=== PATIENT | male | born 1955 | race Caucasian/White ===

== ENCOUNTER 2017-08-08 16:39 | Inpatient (IN) | payer OTHER ==
[~2017-08-08] VITALS: Ht 195.6 cm; Wt 96.7 kg
[2017-08-08 18:11] LABS: HEMATOCRIT 33.5 % (38.0-50.0); HEMOGLOBIN 11.5 G/DL (12.5-16.6); MCHC 34.3 G/DL (30.0-36.0); MCV 84.4 FL (86-99); PLATELET COUNT 264 K/uL (156-360); RBC DIS.WIDTH-CV 13.6 % (11.8-14.6); RBC DIS.WIDTH-SD 42.3 % (39-53); RED BLOOD COUNT 3.97 M/uL (4.00-5.50)
[2017-08-08 18:23] LABS: ALBUMIN 3.8 g/dL (3.2-4.8)
[2017-08-08 18:24] LABS: CHLORIDE 98 mEq/L (99-109); POTASSIUM 4.4 mEq/L (3.7-5.4); SODIUM 134 mEq/L (136-147)
[2017-08-08 18:26] LABS: TOTAL PROTEIN 7.6 g/dL (6.4-8.3)
[2017-08-08 18:28] LABS: TOTAL BILIRUBIN 0.6 mg/dL (0.0-1.0)
[2017-08-08 18:30] LABS: ALKALINE PHOSPHATASE 68 IU/L (3-129); CREATININE 6.3 mg/dL (0.6-1.3)
[2017-08-08 18:31] LABS: AST (GOT) 11 IU/L (2-34)
[2017-08-08 18:33] LABS: ALT (GPT) 6 IU/L (3-49); LIPASE 9 U/L (1.0-51.0)
[2017-08-08 18:38] LABS: GFR ESTIMATE (CALCULATED) 10 mL/min/ (58.99-99999)
[2017-08-08 18:39] LABS: TROP-I INTERPRETATION NEGATIVE; TROPONIN-I 0.12 ng/mL (0.0-0.30)
[2017-08-08 18:49] LABS: GLUCOSE 483 mg/dL (70-99)
[2017-08-08 18:50] LABS: UREA NITROGEN (BUN) 119 mg/dL (9-23)
[2017-08-08] MEDS ORDERED: COREG12.5 M1 PO (19:45)
[2017-08-08] MEDS ORDERED: GABAPENTIN100 MG PO (19:45)
[2017-08-08] MEDS ORDERED: APRESOLINE25 MG PO (19:45)
[2017-08-08] MEDS ORDERED: ADULT ASPIRIN R81 MG PO (19:46)
[2017-08-08] MEDS ORDERED: AMLODIPINE BESYL5 MG PO (19:46)
[2017-08-08] MEDS ORDERED: KLOR-CON M1010 MEQ PO (19:46)
[2017-08-08] MEDS ORDERED: PRILOSEC20 MG PO (19:46)
[2017-08-08] MEDS ORDERED: LANTUS 10100 UNITS/ SC (19:47)
[2017-08-08 22:21] LABS: APPEARANCE CLOUDY ((CLEAR)); BILIRUBIN NEGATIVE; BLOOD MODERATE; COLOR YELLOW ((YELLOW)); GLUCOSE (STRIP) >=500; KETONES 5; LEUKOCYTES NEGATIVE; NITRITE NEGATIVE; PROTEIN (STRIP) >=500; SPECIFIC GRAVITY 1.017 (1.000-1.030); UROBILINOGEN 0.2 MG/DL (0.2-1.0)
[2017-08-08 22:42] LABS: AMORPHOUS URATES CRYSTALS 4+; BACTERIA NONE SEEN /HPF; EPITHELIAL CELLS NONE SEEN /HPF; MUCUS NONE SEEN /LPF; RED BLOOD CELLS 0-5 /HPF (0-5); UCUL ADDED? NO; WHITE BLOOD CELLS NONE SEEN /HPF (0-5)
[2017-08-08 23:37] LABS: URIC ACID 11.5 mg/dL (3.1-9.2)
[2017-08-09 00:53] LABS: TROP-I INTERPRETATION NEGATIVE; TROPONIN-I 0.11 ng/mL (0.0-0.30)
[2017-08-09 07:03] LABS: HEMATOCRIT 31.1 % (38.0-50.0); HEMOGLOBIN 10.3 G/DL (12.5-16.6); MCH 28.1 PG (29.0-34.0); MCHC 33.1 G/DL (30.0-36.0); PLATELET COUNT 232 K/uL (156-360); RBC DIS.WIDTH-CV 13.9 % (11.8-14.6); RED BLOOD COUNT 3.66 M/uL (4.00-5.50)
[2017-08-09 07:38] LABS: TROP-I INTERPRETATION NEGATIVE
[2017-08-09 07:55] LABS: ALBUMIN 2.9 G/DL (3.2-4.8); CHLORIDE 104 MEQ/L (99-109); GFR ESTIMATE (CALCULATED) 13 mL/min/ (58.99-99999); GLUCOSE 280 mg/dL (70-99); PHOSPHORUS 4.1 mg/dL (2.5-4.9); SODIUM 136 MEQ/L (136-147); UREA NITROGEN (BUN) 95 mg/dL (9-23)
[2017-08-09 07:56] LABS: CREATININE 4.8 MG/DL (0.6-1.3)
[2017-08-09 08:07] LABS: POTASSIUM 3.9 MEQ/L (3.7-5.4)
[2017-08-09 08:08] LABS: THYROTROPIN (TSH) 0.69 MIU/L (0.4-5.5)
[2017-08-09 08:21] LABS: UR CREATININE CONCENTRATION 77.7 MG/DL
[2017-08-09 13:12] VITALS: BP 130/79
[2017-08-09 19:25] VITALS: BP 128/74
[2017-08-10] VITALS (7 sets, daily range): BP systolic 108–145; BP diastolic 65–94
[2017-08-10 06:34] LABS: MAGNESIUM 1.7 mg/dl (1.3-2.7)
[2017-08-10 07:07] LABS: HEMATOCRIT 28.5 % (38.0-50.0); HEMOGLOBIN 9.2 G/DL (12.5-16.6); MCH 27.9 PG (29.0-34.0); MCHC 32.3 G/DL (30.0-36.0); MCV 86.4 FL (86-99); PLATELET COUNT 215 K/uL (156-360); RBC DIS.WIDTH-SD 43.4 % (39-53); WHITE BLOOD COUNT 7.1 K/uL (4.1-10.2)
[2017-08-10 08:10] LABS: CHLORIDE 107 MEQ/L (99-109); CREATININE 4.3 MG/DL (0.6-1.3); GFR ESTIMATE (CALCULATED) 15 mL/min/ (58.99-99999); GLUCOSE 162 mg/dL (70-99); SODIUM 140 MEQ/L (136-147); UREA NITROGEN (BUN) 82 mg/dL (9-23)
[2017-08-10 09:26] LABS: IRON 36 MCG/DL (35-150); TRANSFERRIN (TIBC) 113.3 mg/dL (215-380); TRANSFERRIN SATUR. 32 % (20-55)
[2017-08-10 09:48] LABS: FOLIC ACID (FOLATE) 8.3 NG/ML (5.0-22.0)
[2017-08-11 03:54] VITALS: BP 146/82
[2017-08-11 05:56] LABS: HEMOGLOBIN 8.3 G/DL (12.5-16.6); MCH 28.3 PG (29.0-34.0); MCHC 31.9 G/DL (30.0-36.0); MCV 88.7 FL (86-99); PLATELET COUNT 187 K/uL (156-360); RBC DIS.WIDTH-CV 14.4 % (11.8-14.6); RBC DIS.WIDTH-SD 46.4 % (39-53); RED BLOOD COUNT 2.93 M/uL (4.00-5.50); WHITE BLOOD COUNT 6.3 K/uL (4.1-10.2)
[2017-08-11 06:29] LABS: CHLORIDE 106 MEQ/L (99-109); CREATININE 4.3 MG/DL (0.6-1.3); GFR ESTIMATE (CALCULATED) 15 mL/min/ (58.99-99999); GLUCOSE 210 mg/dL (70-99); POTASSIUM 3.9 MEQ/L (3.7-5.4); SODIUM 136 MEQ/L (136-147); UREA NITROGEN (BUN) 69 mg/dL (9-23)
[2017-08-11 07:14] VITALS: BP 124/86
[2017-08-11 07:38] LABS: Estimated Average Glucose 260 mg/dL (70-123); HEMOGLOBIN A1c (GLYCOHEMOGLOB) 10.7 % HGB (Below 5.7)
[2017-08-11 11:17] VITALS: BP 145/88
[2017-08-11 15:24] VITALS: BP 130/81
[2017-08-11 19:10] VITALS: BP 140/86
[2017-08-11 19:21] LABS: URINE TOTAL PROTEIN 223 MG/DL (0-10)
[2017-08-12 00:25] VITALS: BP 131/87
[2017-08-12 03:59] VITALS: BP 137/83
[2017-08-12 06:31] LABS: C4 COMPLEMENT 36 MG/DL (10-40)
[2017-08-12 07:10] LABS: HEMATOCRIT 25.2 % (38.0-50.0); HEMOGLOBIN 7.9 G/DL (12.5-16.6); MCH 28.1 PG (29.0-34.0); MCHC 31.3 G/DL (30.0-36.0); MCV 89.7 FL (86-99); PLATELET COUNT 224 K/uL (156-360); RBC DIS.WIDTH-CV 14.5 % (11.8-14.6); RBC DIS.WIDTH-SD 46.8 % (39-53); RED BLOOD COUNT 2.81 M/uL (4.00-5.50); WHITE BLOOD COUNT 7.1 K/uL (4.1-10.2)
[2017-08-12 07:12] VITALS: BP 129/80
[2017-08-12 07:47] LABS: CHLORIDE 105 MEQ/L (99-109); CREATININE 4.3 MG/DL (0.6-1.3); GFR ESTIMATE (CALCULATED) 15 mL/min/ (58.99-99999); GLUCOSE 291 mg/dL (70-99); MAGNESIUM 1.4 mg/dl (1.3-2.7); POTASSIUM 4.2 MEQ/L (3.7-5.4); SODIUM 135 MEQ/L (136-147); UREA NITROGEN (BUN) 62 mg/dL (9-23)
[2017-08-12 11:16] VITALS: BP 119/83
[2017-08-12 11:35] LABS: BASOPHIL (%) 0.1 % (0-1); EOSINOPHIL (%) 7.1 % (0-5); EOSINOPHIL COUNT 0.5 K/uL (0-0.3); HEMATOCRIT 24.9 % (38.0-50.0); IMMATURE GRANULOCYTE (%) 1.1 % (0.0-0.7); LYMPHOCYTE (%) 24.5 % (15-42); LYMPHOCYTE COUNT 1.8 K/uL (1.0-2.8); MCH 28.9 PG (29.0-34.0); MCHC 32.1 G/DL (30.0-36.0); MCV 89.9 FL (86-99); MONOCYTE (%) 11.9 % (3-12); MONOCYTE COUNT 0.9 K/uL (0-0.8); NEUTROPHIL (%) 55.3 % (45-76); NEUTROPHIL COUNT 3.9 K/uL (1.8-6.4); PLATELET COUNT 196 K/uL (156-360); RBC DIS.WIDTH-CV 14.7 % (11.8-14.6); RBC DIS.WIDTH-SD 48.9 % (39-53); RED BLOOD COUNT 2.77 M/uL (4.00-5.50); WHITE BLOOD COUNT 7.1 K/uL (4.1-10.2)
[2017-08-12 11:57] LABS: HEPATITIS B SURFACE ANTIGEN Nonreactive; HEPATITIS C ANTIBODY Nonreactive
[2017-08-12 11:58] LABS: HEPATITIS B SURFACE ANTIBODY Nonreactive
[2017-08-12 15:33] VITALS: BP 112/72
[2017-08-12] MEDS ORDERED: ELIQUIS5 MG PO (15:54)
[2017-08-12 21:40] LABS: INTACT PARATHYROID HORMONE 193 pg/mL (10-69)
[2017-08-14 19:48] LABS: MYELOPEROXIDASE ANTIBODY (MPO) <1.0 AI (<1.0); PROTEINASE-3 ANTIBODY+ <1.0 AI (<1.0)
== END 2017-08-12 17:56 | DRG 638 ==
LOC: EME 16:39 → 4EAST 21:56 → EDOF 21:56 → ENRESERV 22:05 → 4EAST 08-09 13:10 → ENPENDDIS 08-12 → 4EAST 08-12 17:56
PROVIDERS: Hospitalist; Internal Medicine; Physician Assistant; Student in an Organized Health Care Education/Training Program
DX: E11.10 Type 2 diabetes mellitus with ketoacidosis without coma (principal); I48.0 Paroxysmal atrial fibrillation; N39.0 Urinary tract infection, site not specified; N17.9 Acute kidney failure, unspecified; N18.4 Chronic kidney disease, stage 4 (severe); I12.9 Hypertensive chronic kidney disease with stage 1 through stage 4 chronic kidney disease, or unspecified chronic kidney disease; J01.00 Acute maxillary sinusitis, unspecified; E86.1 Hypovolemia; N28.1 Cyst of kidney, acquired; E11.22 Type 2 diabetes mellitus with diabetic chronic kidney disease; R55 Syncope and collapse; D63.1 Anemia in chronic kidney disease; R07.89 Other chest pain; K59.00 Constipation, unspecified; E78.5 Hyperlipidemia, unspecified; E86.0 Dehydration; I42.9 Cardiomyopathy, unspecified; E11.42 Type 2 diabetes mellitus with diabetic polyneuropathy; E11.21 Type 2 diabetes mellitus with diabetic nephropathy; F17.210 Nicotine dependence, cigarettes, uncomplicated; K21.0 Gastro-esophageal reflux disease with esophagitis; Z79.4 Long term (current) use of insulin; Z79.01 Long term (current) use of anticoagulants; E55.9 Vitamin D deficiency, unspecified; Z82.49 Family history of ischemic heart disease and other diseases of the circulatory system; Z83.3 Family history of diabetes mellitus
CPT/HCPCS: 70450; 71046; 74176; 76770; 80048; 80048 91; 80053; 80069; 81003; 82306; 82436; 82550 91; 82570; 82607; 82746; 82948; 83036; 83540; 83605; 83690; 83735; 83970; 84133; 84156; 84300; 84443; 84466; 84484; 84550; 85025; 85027; 86021 90; 86160; 86334; 86335; 86430; 86706; 86803; 87040; 87340; 89190; 93005; 93306; 99281; 99285; G0103; J0696; J0881; J1650; J1815; J2405; J7030; S0028

== ENCOUNTER 2017-10-16 13:20 | Inpatient (IN) | payer OTHER ==
[~2017-10-16] VITALS: Ht 195.6 cm; Wt 97.5 kg
[~2017-10-16 13:20] MED LIST: ADULT ASPIRIN R81 MG PO; AMLODIPINE BESYL5 MG PO; APRESOLINE25 MG PO; COREG12.5 M1 PO; DULCOLAX10 MG PR; ELIQUIS5 MG PO; GABAPENTIN100 MG PO; KLOR-CON M1010 MEQ PO; LANTUS 10100 UNITS/ SC; MILK OF MAGN PO; NOVOLOG PE100 UNITS/ SC; PRILOSEC20 MG PO
[2017-10-16 14:07] LABS: HEMATOCRIT 25.3 % (38.0-50.0); MCHC 31.6 G/DL (30.0-36.0); MCV 88.5 FL (86-99); PLATELET COUNT 252 K/uL (156-360); RBC DIS.WIDTH-SD 48.4 % (39-53); RED BLOOD COUNT 2.86 M/uL (4.00-5.50); WHITE BLOOD COUNT 6.9 K/uL (4.1-10.2)
[2017-10-16 14:15] LABS: CHLORIDE 106 mEq/L (99-109); POTASSIUM 3.9 mEq/L (3.7-5.4); SODIUM 134 mEq/L (136-147)
[2017-10-16 14:17] LABS: GLUCOSE 136 mg/dL (70-99)
[2017-10-16 14:21] LABS: CREATININE 5.6 mg/dL (0.6-1.3); GFR ESTIMATE (CALCULATED) 11 mL/min/ (58.99-99999)
[2017-10-16 14:22] LABS: UREA NITROGEN (BUN) 56 mg/dL (9-23)
[2017-10-16 17:34] LABS: CHLORIDE 106 mEq/L (99-109); POTASSIUM 3.9 mEq/L (3.7-5.4); SODIUM 135 mEq/L (136-147)
[2017-10-16 17:36] LABS: GLUCOSE 141 mg/dL (70-99)
[2017-10-16 17:40] LABS: CREATININE 5.4 mg/dL (0.6-1.3); GFR ESTIMATE (CALCULATED) 11 mL/min/ (58.99-99999)
[2017-10-16 17:41] LABS: UREA NITROGEN (BUN) 55 mg/dL (9-23)
[2017-10-16 21:55] LABS: TROP-I INTERPRETATION NEGATIVE; TROPONIN-I < 0.01 ng/mL (0.0-0.30)
[2017-10-16 23:08] VITALS: BP 153/77
[2017-10-17 01:15] VITALS: BP 140/70
[2017-10-17 02:08] LABS: HEMATOCRIT 26.2 % (38.0-50.0); HEMOGLOBIN 8.4 G/DL (12.5-16.6); MCH 27.9 PG (29.0-34.0); MCHC 32.1 G/DL (30.0-36.0); PLATELET COUNT 294 K/uL (156-360); RBC DIS.WIDTH-CV 14.9 % (11.8-14.6); RBC DIS.WIDTH-SD 47.7 % (39-53); RED BLOOD COUNT 3.01 M/uL (4.00-5.50)
[2017-10-17 02:20] LABS: CHLORIDE 108 mEq/L (99-109); POTASSIUM 4.3 mEq/L (3.7-5.4); SODIUM 136 mEq/L (136-147)
[2017-10-17 02:22] LABS: GLUCOSE 181 mg/dL (70-99)
[2017-10-17 02:26] LABS: CREATININE 5.1 mg/dL (0.6-1.3); GFR ESTIMATE (CALCULATED) 12 mL/min/ (58.99-99999)
[2017-10-17 02:27] LABS: UREA NITROGEN (BUN) 53 mg/dL (9-23)
[2017-10-17 02:28] LABS: TROP-I INTERPRETATION NEGATIVE; TROPONIN-I < 0.01 ng/mL (0.0-0.30)
[2017-10-17 05:00] VITALS: BP 131/79
[2017-10-17 08:03] VITALS: BP 146/80
[2017-10-17 09:23] LABS: IRON 72 MCG/DL (35-150); TRANSFERRIN (TIBC) 137.7 mg/dL (215-380); TRANSFERRIN SATUR. 52 % (20-55)
[2017-10-17 09:39] LABS: FERRITIN 174 NG/ML (22-322)
[2017-10-17 11:55] VITALS: BP 155/85
[2017-10-17 15:11] VITALS: BP 111/83
[2017-10-17 20:08] VITALS: BP 140/77
[2017-10-18] VITALS (11 sets, daily range): BP systolic 138–165; BP diastolic 70–91
[2017-10-18 05:42] LABS: BASOPHIL (%) 0.1 % (0-1); EOSINOPHIL (%) 0.3 % (0-5); HEMATOCRIT 21.5 % (38.0-50.0); HEMOGLOBIN 6.8 G/DL (12.5-16.6); IMMATURE GRANULOCYTE (%) 0.3 % (0.0-0.7); LYMPHOCYTE (%) 19.9 % (15-42); LYMPHOCYTE COUNT 1.5 K/uL (1.0-2.8); MCH 27.8 PG (29.0-34.0); MCHC 31.6 G/DL (30.0-36.0); MCV 87.8 FL (86-99); MONOCYTE (%) 10.9 % (3-12); MONOCYTE COUNT 0.8 K/uL (0-0.8); NEUTROPHIL (%) 68.5 % (45-76); NEUTROPHIL COUNT 5.2 K/uL (1.8-6.4); PLATELET COUNT 229 K/uL (156-360); RBC DIS.WIDTH-CV 15.2 % (11.8-14.6); RBC DIS.WIDTH-SD 48.3 % (39-53); RED BLOOD COUNT 2.45 M/uL (4.00-5.50); WHITE BLOOD COUNT 7.6 K/uL (4.1-10.2)
[2017-10-18 06:00] LABS: ALBUMIN 2.9 G/DL (3.2-4.8); CHLORIDE 110 MEQ/L (99-109); CREATININE 4.9 MG/DL (0.6-1.3); GFR ESTIMATE (CALCULATED) 13 mL/min/ (58.99-99999); GLUCOSE 66 mg/dL (70-99); PHOSPHORUS 3.6 mg/dL (2.5-4.9); POTASSIUM 4.4 MEQ/L (3.7-5.4); SODIUM 139 MEQ/L (136-147); UREA NITROGEN (BUN) 62 mg/dL (9-23)
[2017-10-18 08:15] LABS: INTACT PARATHYROID HORMONE 131 pg/mL (10-69)
[2017-10-18 08:28] LABS: HEMATOCRIT 22.5 % (38.0-50.0); MCV 87.9 FL (86-99)
[2017-10-18 17:06] LABS: HEMATOCRIT 25.6 % (38.0-50.0); HEMOGLOBIN 8.1 G/DL (12.5-16.6)
[2017-10-19 04:56] LABS: ALBUMIN 3.1 g/dL (3.2-4.8)
[2017-10-19 04:57] LABS: CHLORIDE 110 mEq/L (99-109); POTASSIUM 4.9 mEq/L (3.7-5.4); SODIUM 138 mEq/L (136-147)
[2017-10-19 05:02] LABS: CREATININE 5.3 mg/dL (0.6-1.3); GFR ESTIMATE (CALCULATED) 12 mL/min/ (58.99-99999)
[2017-10-19 05:03] LABS: UREA NITROGEN (BUN) 70 mg/dL (9-23)
[2017-10-19 05:06] LABS: GLUCOSE 171 mg/dL (70-99)
[2017-10-19 05:46] VITALS: BP 155/81
[2017-10-19 06:45] LABS: HEMOGLOBIN A1c (GLYCOHEMOGLOB) 9.5 % (Below 5.7)
[2017-10-19 08:03] LABS: HEMATOCRIT 24.3 % (38.0-50.0); HEMOGLOBIN 7.7 G/DL (12.5-16.6); MCH 28.1 PG (29.0-34.0); MCHC 31.7 G/DL (30.0-36.0); MCV 88.7 FL (86-99); PLATELET COUNT 230 K/uL (156-360); RBC DIS.WIDTH-CV 15.6 % (11.8-14.6); RBC DIS.WIDTH-SD 50.4 % (39-53); RED BLOOD COUNT 2.74 M/uL (4.00-5.50); WHITE BLOOD COUNT 8.4 K/uL (4.1-10.2)
[2017-10-19 08:30] VITALS: BP 162/86
[2017-10-19 11:30] VITALS: BP 162/76
[2017-10-19 14:10] VITALS: BP 151/77
[2017-10-19 16:17] LABS: HEMATOCRIT 24.6 % (38.0-50.0); HEMOGLOBIN 7.8 G/DL (12.5-16.6); MCV 87.5 FL (86-99)
[2017-10-19 20:00] VITALS: BP 146/78
[2017-10-19 23:47] VITALS: BP 137/74
[2017-10-20] VITALS (8 sets, daily range): BP systolic 138–185; BP diastolic 77–91
[2017-10-20 06:03] LABS: BASOPHIL (%) 0.4 % (0-1); EOSINOPHIL (%) 7.8 % (0-5); EOSINOPHIL COUNT 0.6 K/uL (0-0.3); HEMATOCRIT 23.8 % (38.0-50.0); HEMOGLOBIN 7.6 G/DL (12.5-16.6); IMMATURE GRANULOCYTE (%) 0.5 % (0.0-0.7); LYMPHOCYTE (%) 20.8 % (15-42); LYMPHOCYTE COUNT 1.5 K/uL (1.0-2.8); MCH 28.1 PG (29.0-34.0); MCHC 31.9 G/DL (30.0-36.0); MCV 88.1 FL (86-99); MONOCYTE (%) 11.4 % (3-12); MONOCYTE COUNT 0.8 K/uL (0-0.8); NEUTROPHIL (%) 59.1 % (45-76); NEUTROPHIL COUNT 4.3 K/uL (1.8-6.4); PLATELET COUNT 210 K/uL (156-360); RBC DIS.WIDTH-CV 15.6 % (11.8-14.6); RBC DIS.WIDTH-SD 48.9 % (39-53); WHITE BLOOD COUNT 7.3 K/uL (4.1-10.2)
[2017-10-20 06:36] LABS: ALBUMIN 2.9 G/DL (3.2-4.8); CHLORIDE 111 MEQ/L (99-109); CREATININE 4.8 MG/DL (0.6-1.3); GFR ESTIMATE (CALCULATED) 13 mL/min/ (58.99-99999); PHOSPHORUS 4.6 mg/dL (2.5-4.9); POTASSIUM 4.6 MEQ/L (3.7-5.4); SODIUM 142 MEQ/L (136-147); UREA NITROGEN (BUN) 66 mg/dL (9-23)
[2017-10-20 06:44] LABS: GLUCOSE 60 mg/dL (70-99)
[2017-10-20 06:51] LABS: STOOL OCCULT BLD 1ST SPECIMEN NEGATIVE
[2017-10-20 16:25] LABS: STOOL OCCULT BLD 1ST SPECIMEN NEGATIVE
[2017-10-21 00:05] VITALS: BP 155/78
[2017-10-21 03:58] VITALS: BP 140/78
[2017-10-21 08:05] VITALS: BP 144/78
[2017-10-21 08:15] LABS: BASOPHIL (%) 0.3 % (0-1); EOSINOPHIL (%) 11.6 % (0-5); EOSINOPHIL COUNT 0.9 K/uL (0-0.3); HEMATOCRIT 26.3 % (38.0-50.0); HEMOGLOBIN 8.3 G/DL (12.5-16.6); IMMATURE GRANULOCYTE (%) 0.3 % (0.0-0.7); LYMPHOCYTE (%) 19.8 % (15-42); LYMPHOCYTE COUNT 1.5 K/uL (1.0-2.8); MCH 27.7 PG (29.0-34.0); MCHC 31.6 G/DL (30.0-36.0); MCV 87.7 FL (86-99); MONOCYTE (%) 10.4 % (3-12); MONOCYTE COUNT 0.8 K/uL (0-0.8); NEUTROPHIL (%) 57.6 % (45-76); NEUTROPHIL COUNT 4.3 K/uL (1.8-6.4); PLATELET COUNT 217 K/uL (156-360); RBC DIS.WIDTH-CV 15.9 % (11.8-14.6); RBC DIS.WIDTH-SD 50.5 % (39-53); WHITE BLOOD COUNT 7.4 K/uL (4.1-10.2)
[2017-10-21 08:42] LABS: CHLORIDE 109 MEQ/L (99-109); GFR ESTIMATE (CALCULATED) 12 mL/min/ (58.99-99999); POTASSIUM 4.6 MEQ/L (3.7-5.4); SODIUM 141 MEQ/L (136-147); UREA NITROGEN (BUN) 60 mg/dL (9-23)
[2017-10-21 08:50] LABS: GLUCOSE 147 mg/dL (70-99)
[2017-10-21 11:40] VITALS: BP 142/78
[2017-10-21 16:32] LABS: GLUCOSE 38 mg/dL (70-99)
[2017-10-21 20:20] VITALS: BP 160/92
[2017-10-21 23:20] VITALS: BP 129/82
[2017-10-22 04:28] VITALS: BP 166/83
[2017-10-22 07:01] LABS: HEMOGLOBIN 8.2 G/DL (12.5-16.6); MCH 27.7 PG (29.0-34.0); MCHC 31.5 G/DL (30.0-36.0); MCV 87.8 FL (86-99); PLATELET COUNT 232 K/uL (156-360); RBC DIS.WIDTH-CV 15.9 % (11.8-14.6); RBC DIS.WIDTH-SD 50.3 % (39-53); RED BLOOD COUNT 2.96 M/uL (4.00-5.50); WHITE BLOOD COUNT 8.1 K/uL (4.1-10.2)
[2017-10-22 07:25] LABS: CHLORIDE 108 MEQ/L (99-109); CREATININE 5.1 MG/DL (0.6-1.3); GFR ESTIMATE (CALCULATED) 12 mL/min/ (58.99-99999); POTASSIUM 4.8 MEQ/L (3.7-5.4); SODIUM 140 MEQ/L (136-147); UREA NITROGEN (BUN) 58 mg/dL (9-23)
[2017-10-22 07:30] LABS: GLUCOSE 134 mg/dL (70-99)
[2017-10-22 07:56] VITALS: BP 136/72
[2017-10-22 11:37] VITALS: BP 134/73
[2017-10-22 11:39] LABS: STOOL OCCULT BLD 1ST SPECIMEN NEGATIVE
[2017-10-22 16:37] VITALS: BP 154/75
[2017-10-22 19:55] VITALS: BP 177/95
[2017-10-22 23:53] VITALS: BP 168/86
[2017-10-23 04:02] VITALS: BP 160/79
[2017-10-23 07:06] LABS: HEMATOCRIT 25.9 % (38.0-50.0); HEMOGLOBIN 8.2 G/DL (12.5-16.6); MCH 28.2 PG (29.0-34.0); MCHC 31.7 G/DL (30.0-36.0); PLATELET COUNT 235 K/uL (156-360); RBC DIS.WIDTH-CV 15.9 % (11.8-14.6); RBC DIS.WIDTH-SD 52.2 % (39-53); RED BLOOD COUNT 2.91 M/uL (4.00-5.50); WHITE BLOOD COUNT 7.5 K/uL (4.1-10.2)
[2017-10-23 07:31] LABS: CHLORIDE 108 MEQ/L (99-109); CREATININE 5.2 MG/DL (0.6-1.3); GFR ESTIMATE (CALCULATED) 12 mL/min/ (58.99-99999); GLUCOSE 132 mg/dL (70-99); POTASSIUM 4.8 MEQ/L (3.7-5.4); SODIUM 142 MEQ/L (136-147); UREA NITROGEN (BUN) 57 mg/dL (9-23)
[2017-10-23 08:00] VITALS: BP 162/76
[2017-10-23 12:15] VITALS: BP 181/99
[2017-10-23 15:44] VITALS: BP 170/80
[2017-10-24 01:54] VITALS: BP 145/78
[2017-10-24 08:54] LABS: CHLORIDE 108 MEQ/L (99-109); CREATININE 5.1 MG/DL (0.6-1.3); GFR ESTIMATE (CALCULATED) 12 mL/min/ (58.99-99999); GLUCOSE 134 mg/dL (70-99); POTASSIUM 4.8 MEQ/L (3.7-5.4); SODIUM 141 MEQ/L (136-147); UREA NITROGEN (BUN) 55 mg/dL (9-23)
[2017-10-24 11:27] VITALS: BP 173/75
[2017-10-24 15:50] VITALS: BP 143/77
[2017-10-24 23:45] VITALS: BP 140/85
[2017-10-25 08:00] VITALS: BP 136/72
[2017-10-25 11:25] VITALS: BP 162/84
[2017-10-25 15:41] VITALS: BP 148/82
[2017-10-26 04:04] VITALS: BP 145/74
[2017-10-26 07:45] LABS: HEMATOCRIT 24.4 % (38.0-50.0); HEMOGLOBIN 7.7 G/DL (12.5-16.6); MCH 28.1 PG (29.0-34.0); MCHC 31.6 G/DL (30.0-36.0); MCV 89.1 FL (86-99); PLATELET COUNT 240 K/uL (156-360); RBC DIS.WIDTH-CV 15.7 % (11.8-14.6); RBC DIS.WIDTH-SD 50.9 % (39-53); RED BLOOD COUNT 2.74 M/uL (4.00-5.50); WHITE BLOOD COUNT 7.3 K/uL (4.1-10.2)
[2017-10-26 08:07] LABS: CHLORIDE 110 MEQ/L (99-109); CREATININE 5.3 MG/DL (0.6-1.3); GFR ESTIMATE (CALCULATED) 12 mL/min/ (58.99-99999); GLUCOSE 167 mg/dL (70-99); POTASSIUM 4.4 MEQ/L (3.7-5.4); SODIUM 143 MEQ/L (136-147); UREA NITROGEN (BUN) 55 mg/dL (9-23)
[2017-10-26 15:54] VITALS: BP 160/95
[2017-10-27 00:08] VITALS: BP 120/60
[2017-10-27 06:23] LABS: HEMATOCRIT 25.2 % (38.0-50.0); HEMOGLOBIN 7.9 G/DL (12.5-16.6); MCH 27.8 PG (29.0-34.0); MCHC 31.3 G/DL (30.0-36.0); MCV 88.7 FL (86-99); PLATELET COUNT 239 K/uL (156-360); RBC DIS.WIDTH-CV 15.1 % (11.8-14.6); RBC DIS.WIDTH-SD 48.4 % (39-53); RED BLOOD COUNT 2.84 M/uL (4.00-5.50); WHITE BLOOD COUNT 7.1 K/uL (4.1-10.2)
[2017-10-27 07:12] LABS: CHLORIDE 106 MEQ/L (99-109); CREATININE 5.4 MG/DL (0.6-1.3); GFR ESTIMATE (CALCULATED) 11 mL/min/ (58.99-99999); POTASSIUM 4.5 MEQ/L (3.7-5.4); SODIUM 139 MEQ/L (136-147); UREA NITROGEN (BUN) 61 mg/dL (9-23)
[2017-10-27 07:20] LABS: GLUCOSE 335 mg/dL (70-99)
[2017-10-27 10:21] VITALS: BP 130/74
[2017-10-28 00:28] VITALS: BP 151/77
[2017-10-28 07:09] LABS: CHLORIDE 103 MEQ/L (99-109); CREATININE 5.8 MG/DL (0.6-1.3); GFR ESTIMATE (CALCULATED) 11 mL/min/ (58.99-99999); GLUCOSE 254 mg/dL (70-99); PHOSPHORUS 5.7 mg/dL (2.5-4.9); POTASSIUM 4.3 MEQ/L (3.7-5.4); SODIUM 136 MEQ/L (136-147); UREA NITROGEN (BUN) 66 mg/dL (9-23)
[2017-10-28 07:47] VITALS: BP 142/68
[2017-10-28 21:29] VITALS: BP 167/88
[2017-10-28 23:57] VITALS: BP 148/70
[2017-10-29 06:00] LABS: HEMATOCRIT 27.3 % (38.0-50.0); HEMOGLOBIN 8.7 G/DL (12.5-16.6); MCH 28.1 PG (29.0-34.0); MCHC 31.9 G/DL (30.0-36.0); MCV 88.1 FL (86-99); PLATELET COUNT 276 K/uL (156-360); RBC DIS.WIDTH-CV 15.2 % (11.8-14.6); RBC DIS.WIDTH-SD 48.5 % (39-53); WHITE BLOOD COUNT 8.7 K/uL (4.1-10.2)
[2017-10-29 06:28] LABS: ALBUMIN 3.3 G/DL (3.2-4.8); CHLORIDE 102 MEQ/L (99-109); CREATININE 5.7 MG/DL (0.6-1.3); GFR ESTIMATE (CALCULATED) 11 mL/min/ (58.99-99999); GLUCOSE 318 mg/dL (70-99); POTASSIUM 4.2 MEQ/L (3.7-5.4); SODIUM 136 MEQ/L (136-147); UREA NITROGEN (BUN) 67 mg/dL (9-23)
[2017-10-29 07:55] VITALS: BP 140/70
[2017-10-29 13:24] LABS: C DIFF TOXIN POSITIVE (NEGATIVE)
[2017-10-29 16:34] VITALS: BP 169/93
[2017-10-30] VITALS: BP 156/83
[2017-10-30 07:28] VITALS: BP 164/78
[2017-10-30 08:50] LABS: HEMOGLOBIN 9.1 G/DL (12.5-16.6); MCH 27.4 PG (29.0-34.0); MCHC 31.4 G/DL (30.0-36.0); MCV 87.3 FL (86-99); PLATELET COUNT 319 K/uL (156-360); RBC DIS.WIDTH-CV 15.4 % (11.8-14.6); RBC DIS.WIDTH-SD 48.4 % (39-53); RED BLOOD COUNT 3.32 M/uL (4.00-5.50); WHITE BLOOD COUNT 11.1 K/uL (4.1-10.2)
[2017-10-30 09:12] LABS: ALBUMIN 3.5 G/DL (3.2-4.8); CHLORIDE 102 MEQ/L (99-109); CREATININE 5.5 MG/DL (0.6-1.3); GFR ESTIMATE (CALCULATED) 11 mL/min/ (58.99-99999); GLUCOSE 312 mg/dL (70-99); POTASSIUM 4.4 MEQ/L (3.7-5.4); SODIUM 136 MEQ/L (136-147); UREA NITROGEN (BUN) 69 mg/dL (9-23)
[2017-10-31 00:45] VITALS: BP 138/75
[2017-10-31 06:43] LABS: ALBUMIN 3.2 G/DL (3.2-4.8); CHLORIDE 102 MEQ/L (99-109); CREATININE 5.7 MG/DL (0.6-1.3); GFR ESTIMATE (CALCULATED) 11 mL/min/ (58.99-99999); GLUCOSE 282 mg/dL (70-99); PHOSPHORUS 5.3 mg/dL (2.5-4.9); POTASSIUM 4.4 MEQ/L (3.7-5.4); SODIUM 138 MEQ/L (136-147); UREA NITROGEN (BUN) 71 mg/dL (9-23)
[2017-10-31 07:50] VITALS: BP 173/83
[2017-10-31 16:03] VITALS: BP 144/73
[2017-10-31 19:00] VITALS: BP 148/58
[2017-11-01 06:39] LABS: ALBUMIN 3.2 G/DL (3.2-4.8); CHLORIDE 104 MEQ/L (99-109); CREATININE 5.7 MG/DL (0.6-1.3); GFR ESTIMATE (CALCULATED) 11 mL/min/ (58.99-99999); GLUCOSE 354 mg/dL (70-99); PHOSPHORUS 4.7 mg/dL (2.5-4.9); POTASSIUM 4.3 MEQ/L (3.7-5.4); SODIUM 138 MEQ/L (136-147); UREA NITROGEN (BUN) 78 mg/dL (9-23)
[2017-11-01 08:38] VITALS: BP 192/98
[2017-11-01 09:49] VITALS: BP 157/81
[2017-11-01 12:00] VITALS: BP 156/73
[2017-11-01 16:03] VITALS: BP 163/85
[2017-11-01 23:10] VITALS: BP 155/74
[2017-11-02 07:00] LABS: ALBUMIN 3.2 G/DL (3.2-4.8); CHLORIDE 102 MEQ/L (99-109); CREATININE 5.8 MG/DL (0.6-1.3); GFR ESTIMATE (CALCULATED) 11 mL/min/ (58.99-99999); GLUCOSE 282 mg/dL (70-99); PHOSPHORUS 4.6 mg/dL (2.5-4.9); POTASSIUM 4.3 MEQ/L (3.7-5.4); SODIUM 138 MEQ/L (136-147); UREA NITROGEN (BUN) 78 mg/dL (9-23)
[2017-11-02 09:08] VITALS: BP 150/74
[2017-11-02 16:35] VITALS: BP 151/76
[2017-11-02 23:15] VITALS: BP 166/79
[2017-11-03 09:15] VITALS: BP 150/80
[2017-11-03] MEDS ORDERED: NABI650T PO (13:33)
[2017-11-03] MEDS ORDERED: PREDNISONE10 MG PO (13:33)
[2017-11-03] MEDS ORDERED: VENTOLIN HFA18 GM IH (13:33)
[2017-11-03] MEDS ORDERED: FLORASTOR250 MG PO (13:33)
[2017-11-03] MEDS ORDERED: CARVEDILOL25 MG PO (13:33)
[2017-11-03] MEDS ORDERED: VANCOCIN HCL125 MG PO (13:33)
[2017-11-03] MEDS ORDERED: ERGOCALCIF50000 UNIT PO (13:33)
[2017-11-03] MEDS ORDERED: STIOLTO RESPIMAT4 GM IH (13:33)
[2017-11-03] MEDS ORDERED: APRESOLINE50 MG PO (13:33)
== END 2017-11-03 16:26 | disposition home health service (06) | DRG 637 ==
LOC: EME 13:20 → EDOF 19:41 → 4EAST 19:41 → ENRESERV 19:57 → CANRESERV 19:57 → ENRESERV 20:46 → 4EAST 22:13 → ENRESERV 10-20 07:45 → 2EAST 10-20 12:14 → ENPENDDIS 11-03 → 2EAST 11-03 16:26
PROVIDERS: Emergency Medicine Emergency Medical Services; Family Medicine; Hospitalist; Internal Medicine; Internal Medicine Gastroenterology; Internal Medicine Pulmonary Disease; Physician Assistant
PROC: 30233N1 Transfusion of Nonautologous Red Blood Cells into Peripheral Vein, Percutaneous Approach (ICD-10-PCS; principal; 2017-10-18)
DX: E11.649 Type 2 diabetes mellitus with hypoglycemia without coma (principal); J69.0 Pneumonitis due to inhalation of food and vomit; G93.41 Metabolic encephalopathy; A04.72 Enterocolitis due to Clostridium difficile, not specified as recurrent; J96.01 Acute respiratory failure with hypoxia; I13.2 Hypertensive heart and chronic kidney disease with heart failure and with stage 5 chronic kidney disease, or end stage renal disease; N18.5 Chronic kidney disease, stage 5; D63.1 Anemia in chronic kidney disease; E78.5 Hyperlipidemia, unspecified; J98.11 Atelectasis; K21.9 Gastro-esophageal reflux disease without esophagitis; I48.0 Paroxysmal atrial fibrillation; I48.2 Chronic atrial fibrillation; E11.21 Type 2 diabetes mellitus with diabetic nephropathy; E11.42 Type 2 diabetes mellitus with diabetic polyneuropathy; E11.65 Type 2 diabetes mellitus with hyperglycemia; E11.319 Type 2 diabetes mellitus with unspecified diabetic retinopathy without macular edema; E11.22 Type 2 diabetes mellitus with diabetic chronic kidney disease; E87.2 Acidosis; J44.1 Chronic obstructive pulmonary disease with (acute) exacerbation; E55.9 Vitamin D deficiency, unspecified; N25.81 Secondary hyperparathyroidism of renal origin; K59.00 Constipation, unspecified; I34.0 Nonrheumatic mitral (valve) insufficiency; I50.9 Heart failure, unspecified; N17.9 Acute kidney failure, unspecified; W19.XXXA Unspecified fall, initial encounter; S06.0X9A Concussion with loss of consciousness of unspecified duration, initial encounter; N04.9 Nephrotic syndrome with unspecified morphologic changes; Z91.19 Patient's noncompliance with other medical treatment and regimen; F17.210 Nicotine dependence, cigarettes, uncomplicated; F32.9 Major depressive disorder, single episode, unspecified; F41.9 Anxiety disorder, unspecified; Z82.49 Family history of ischemic heart disease and other diseases of the circulatory system; Z91.15 Patient's noncompliance with renal dialysis; Z83.3 Family history of diabetes mellitus; Z79.4 Long term (current) use of insulin; Z79.01 Long term (current) use of anticoagulants
CPT/HCPCS: 70450; 71045; 71046; 71250; 80048; 80048 91; 80069; 81003; 82272; 82728; 82948; 83036; 83540; 83605; 83970; 84466; 84484; 84999; 85014; 85018; 85025; 85027; 86850; 86900; 86901; 86920; 87040; 87070; 87205; 87449; 87493; 87641; 92610 GN; 93005; 93970; 94640; 94640 76; 94760; 94799; 99202; 99281; 99285; J0295; J0692; J0696; J0881; J1815; J1940; J1956; J2930; J3475; J7030; J7040; J7050; J7512; P9016

== ENCOUNTER 2018-01-14 09:03 | Inpatient (IN) | payer OTHER ==
[~2018-01-14] VITALS: Ht 195.6 cm; Wt 77.3 kg
[~2018-01-14 09:03] MED LIST changes: +ALBUTEROL2.5 MG/3 M IH; +AMLODIPINE BESY10 MG PO; -AMLODIPINE BESYL5 MG PO; +APRESOLINE50 MG PO; +CARVEDILOL25 MG PO; +ERGOCALCIF50000 UNIT PO; +FLORASTOR250 MG PO; +NABI650T PO; +PREDNISONE10 MG PO; +STIOLTO RESPIMAT4 GM IH; +VANCOCIN HCL125 MG PO; +VENTOLIN HFA18 GM IH
[2018-01-14 09:44] LABS: BASOPHIL (%) 0.3 % (0-1); EOSINOPHIL (%) 5.4 % (0-5); EOSINOPHIL COUNT 0.5 K/uL (0-0.3); HEMATOCRIT 29.1 % (38.0-50.0); HEMOGLOBIN 9.8 G/DL (12.5-16.6); IMMATURE GRANULOCYTE (%) 0.3 % (0.0-0.7); LYMPHOCYTE (%) 25.9 % (15-42); LYMPHOCYTE COUNT 2.3 K/uL (1.0-2.8); MCH 27.1 PG (29.0-34.0); MCHC 33.7 G/DL (30.0-36.0); MCV 80.6 FL (86-99); MONOCYTE (%) 7.8 % (3-12); MONOCYTE COUNT 0.7 K/uL (0-0.8); NEUTROPHIL (%) 60.3 % (45-76); NEUTROPHIL COUNT 5.3 K/uL (1.8-6.4); PLATELET COUNT 256 K/uL (156-360); RBC DIS.WIDTH-CV 14.6 % (11.8-14.6); RBC DIS.WIDTH-SD 43.3 % (39-53); RED BLOOD COUNT 3.61 M/uL (4.00-5.50); WHITE BLOOD COUNT 8.8 K/uL (4.1-10.2)
[2018-01-14 09:52] LABS: CHLORIDE 98 mEq/L (99-109); POTASSIUM 3.8 mEq/L (3.7-5.4); SODIUM 130 mEq/L (136-147)
[2018-01-14 09:55] LABS: PTT 24.7 SEC (25-37)
[2018-01-14 09:58] LABS: CREATININE 5.6 mg/dL (0.6-1.3); GFR ESTIMATE (CALCULATED) 11 mL/min/ (58.99-99999)
[2018-01-14 09:59] LABS: UREA NITROGEN (BUN) 49 mg/dL (9-23)
[2018-01-14 10:05] LABS: TROP-I INTERPRETATION NEGATIVE; TROPONIN-I 0.03 ng/mL (0.0-0.30)
[2018-01-14 10:09] LABS: GLUCOSE 514 mg/dL (70-99)
[2018-01-14] MEDS ORDERED: COREG25 M1 PO (12:00)
[2018-01-14] MEDS ORDERED: HYDRALAZINE HCL50 MG PO (12:02)
[2018-01-14 13:23] VITALS: BP 164/94
[2018-01-14 16:32] LABS: TROP-I INTERPRETATION NEGATIVE; TROPONIN-I 0.03 ng/mL (0.0-0.30)
[2018-01-14 20:16] VITALS: BP 80/46
[2018-01-14 20:30] VITALS: BP 96/55
[2018-01-14 22:00] VITALS: BP 119/75
[2018-01-14 22:14] LABS: TROP-I INTERPRETATION NEGATIVE; TROPONIN-I 0.02 ng/mL (0.0-0.30)
[2018-01-14 23:57] VITALS: BP 107/63
[2018-01-15 04:23] VITALS: BP 141/85
[2018-01-15 08:50] VITALS: BP 126/74
[2018-01-15 08:52] LABS: BASOPHIL (%) 0.4 % (0-1); EOSINOPHIL (%) 6.9 % (0-5); EOSINOPHIL COUNT 0.6 K/uL (0-0.3); HEMATOCRIT 27.6 % (38.0-50.0); HEMOGLOBIN 9.2 G/DL (12.5-16.6); IMMATURE GRANULOCYTE (%) 0.4 % (0.0-0.7); LYMPHOCYTE (%) 29.5 % (15-42); LYMPHOCYTE COUNT 2.7 K/uL (1.0-2.8); MCH 27.3 PG (29.0-34.0); MCHC 33.3 G/DL (30.0-36.0); MCV 81.9 FL (86-99); MONOCYTE (%) 6.5 % (3-12); MONOCYTE COUNT 0.6 K/uL (0-0.8); NEUTROPHIL (%) 56.3 % (45-76); NEUTROPHIL COUNT 5.1 K/uL (1.8-6.4); PLATELET COUNT 247 K/uL (156-360); RBC DIS.WIDTH-SD 44.6 % (39-53); RED BLOOD COUNT 3.37 M/uL (4.00-5.50)
[2018-01-15 09:20] LABS: CHLORIDE 108 MEQ/L (99-109); CREATININE 5.4 MG/DL (0.6-1.3); GFR ESTIMATE (CALCULATED) 11 mL/min/ (58.99-99999); POTASSIUM 3.6 MEQ/L (3.7-5.4); SODIUM 136 MEQ/L (136-147); UREA NITROGEN (BUN) 50 mg/dL (9-23)
[2018-01-15 09:21] LABS: GLUCOSE 172 mg/dL (70-99)
[2018-01-15 12:53] VITALS: BP 113/65
[2018-01-15 16:50] VITALS: BP 107/65
[2018-01-15 21:38] VITALS: BP 109/67
[2018-01-16 00:05] VITALS: BP 111/68
[2018-01-16 04:43] VITALS: BP 118/59
[2018-01-16 07:30] VITALS: BP 124/77
[2018-01-16] MEDS ORDERED: ELIQUIS5 MG PO (10:34)
[2018-01-16 12:33] VITALS: BP 124/79
[2018-01-16 17:35] VITALS: BP 121/85
[2018-01-16 20:21] VITALS: BP 113/67
[2018-01-17 00:41] VITALS: BP 106/56
[2018-01-17 04:48] VITALS: BP 105/58
[2018-01-17 07:17] VITALS: BP 107/63
[2018-01-17 08:53] LABS: BASOPHIL (%) 0.5 % (0-1); EOSINOPHIL (%) 8.7 % (0-5); EOSINOPHIL COUNT 0.7 K/uL (0-0.3); HEMATOCRIT 27.1 % (38.0-50.0); HEMOGLOBIN 8.7 G/DL (12.5-16.6); IMMATURE GRANULOCYTE (%) 0.3 % (0.0-0.7); LYMPHOCYTE (%) 30.2 % (15-42); LYMPHOCYTE COUNT 2.3 K/uL (1.0-2.8); MCH 26.8 PG (29.0-34.0); MCHC 32.1 G/DL (30.0-36.0); MCV 83.4 FL (86-99); MONOCYTE (%) 8.3 % (3-12); MONOCYTE COUNT 0.6 K/uL (0-0.8); PLATELET COUNT 210 K/uL (156-360); RBC DIS.WIDTH-SD 45.4 % (39-53); RED BLOOD COUNT 3.25 M/uL (4.00-5.50); WHITE BLOOD COUNT 7.7 K/uL (4.1-10.2)
[2018-01-17 09:22] LABS: CHLORIDE 108 MEQ/L (99-109); CREATININE 5.6 MG/DL (0.6-1.3); GFR ESTIMATE (CALCULATED) 11 mL/min/ (58.99-99999); POTASSIUM 3.8 MEQ/L (3.7-5.4); SODIUM 136 MEQ/L (136-147); UREA NITROGEN (BUN) 54 mg/dL (9-23)
[2018-01-17 09:24] LABS: GLUCOSE 100 mg/dL (70-99)
[2018-01-17 11:58] VITALS: BP 110/65
[2018-01-17] MEDS ORDERED: LEVEMIR100 UNIT/2 SC (13:29)
[2018-01-17] MEDS ORDERED: NOVOLOG 10100 UNITS/ SC (13:29)
[2018-01-17 16:59] VITALS: BP 100/58
[2018-01-17 19:45] VITALS: BP 97/56
[2018-01-18 00:12] VITALS: BP 123/60
[2018-01-18 04:29] VITALS: BP 120/69
[2018-01-18 07:56] VITALS: BP 126/57
== END 2018-01-18 14:55 | DRG 291 ==
LOC: EME 09:03 → EDSTATUS 09:07 → 4EAST 11:32 → EDOF 11:32 → ENRESERV 11:37 → 4EAST 13:27 → SDC 14:16 → ENRESERV 01-16 15:23 → 5SOUTH 01-16 16:53
PROVIDERS: Emergency Medicine; Internal Medicine; Physician Assistant; Surgery
DX: I13.2 Hypertensive heart and chronic kidney disease with heart failure and with stage 5 chronic kidney disease, or end stage renal disease (principal); N18.6 End stage renal disease; I50.9 Heart failure, unspecified; E87.2 Acidosis; E11.65 Type 2 diabetes mellitus with hyperglycemia; E11.22 Type 2 diabetes mellitus with diabetic chronic kidney disease; E11.40 Type 2 diabetes mellitus with diabetic neuropathy, unspecified; E11.21 Type 2 diabetes mellitus with diabetic nephropathy; D63.1 Anemia in chronic kidney disease; N25.81 Secondary hyperparathyroidism of renal origin; I48.0 Paroxysmal atrial fibrillation; J44.9 Chronic obstructive pulmonary disease, unspecified; I25.10 Atherosclerotic heart disease of native coronary artery without angina pectoris; E55.9 Vitamin D deficiency, unspecified; Z53.09 Procedure and treatment not carried out because of other contraindication; Z91.14 Patient's other noncompliance with medication regimen; Z79.4 Long term (current) use of insulin; Z79.82 Long term (current) use of aspirin; Z87.891 Personal history of nicotine dependence
CPT/HCPCS: 36600; 71045; 80048; 80048 91; 82010; 82803; 82948; 84484; 85025; 85027; 85610; 85730; 87641; 93005; 94640; 94640 76; 94760; 99281; 99285; J1815; J2405; J7030; J7040

== ENCOUNTER 2018-01-24 17:10 | Inpatient (IN) | payer OTHER ==
[~2018-01-24] VITALS: Ht 195.6 cm; Wt 63.1 kg
[~2018-01-24 17:10] MED LIST changes: -ADULT ASPIRIN R81 MG PO; +CHILD ASPIRIN81 M1 PO; +COREG25 M1 PO; +HYDRALAZINE HCL50 MG PO; +LEVEMIR100 UNIT/2 SC; +NOVOLOG 10100 UNITS/ SC
[2018-01-24 17:44] LABS: HEMATOCRIT 26.1 % (38.0-50.0); HEMOGLOBIN 8.8 G/DL (12.5-16.6); MCH 28.4 PG (29.0-34.0); MCHC 33.7 G/DL (30.0-36.0); MCV 84.2 FL (86-99); PLATELET COUNT 222 K/uL (156-360); RBC DIS.WIDTH-CV 15.5 % (11.8-14.6); RBC DIS.WIDTH-SD 46.5 % (39-53)
[2018-01-24 17:53] LABS: CHLORIDE 102 mEq/L (99-109); POTASSIUM 4.7 mEq/L (3.7-5.4); SODIUM 135 mEq/L (136-147)
[2018-01-24 17:55] LABS: GLUCOSE 271 mg/dL (70-99)
[2018-01-24 17:59] LABS: CREATININE 6.1 mg/dL (0.6-1.3); GFR ESTIMATE (CALCULATED) 10 mL/min/ (58.99-99999); UREA NITROGEN (BUN) 86 mg/dL (9-23)
[2018-01-24 18:05] LABS: TROP-I INTERPRETATION NEGATIVE; TROPONIN-I 0.06 ng/mL (0.0-0.30)
[2018-01-24] MEDS ORDERED: STIOLTO RESPIMAT4 GM IH (19:02)
[2018-01-24] MEDS ORDERED: FLONASE16 G1 BOTH NARES (19:04)
[2018-01-24] MEDS ORDERED: BASAGLAR K100 UNIT/1 SC (19:05)
[2018-01-24] MEDS ORDERED: HUMALOG100 UNIT/1 SC (19:05)
[2018-01-24] MEDS ORDERED: TYLENOL REGULA325 MG PO (19:06)
[2018-01-24] MEDS ORDERED: PHILLIPS'400 MG/5 M PO (19:07)
[2018-01-24] MEDS ORDERED: DULCOLAX10 MG PR (19:08)
[2018-01-24] MEDS ORDERED: FLEET ENEMA-AD118 ML PR (19:08)
[2018-01-24] MEDS ORDERED: ERGOCALCIF50000 UNIT PO (19:17)
[2018-01-24 23:21] VITALS: BP 133/88
[2018-01-25 01:08] LABS: INTER. NORMALIZED RATIO 1.2
[2018-01-25 01:11] LABS: PTT 31.3 SEC (25-37)
[2018-01-25 01:26] LABS: TROP-I INTERPRETATION NEGATIVE; TROPONIN-I 0.08 ng/mL (0.0-0.30)
[2018-01-25 05:00] VITALS: BP 135/84
[2018-01-25 08:00] VITALS: BP 140/74
[2018-01-25 09:09] LABS: GLUCOSE 29 mg/dL (70-99)
[2018-01-25 09:21] LABS: INTER. NORMALIZED RATIO 1.3
[2018-01-25 09:24] LABS: PTT 39.9 SEC (25-37)
[2018-01-25 09:30] LABS: TROP-I INTERPRETATION NEGATIVE
[2018-01-25 10:27] LABS: HEMATOCRIT 25.4 % (38.0-50.0); HEMOGLOBIN 8.1 G/DL (12.5-16.6); MCH 27.4 PG (29.0-34.0); MCHC 31.9 G/DL (30.0-36.0); MCV 85.8 FL (86-99); PLATELET COUNT 234 K/uL (156-360); RBC DIS.WIDTH-CV 15.5 % (11.8-14.6); RBC DIS.WIDTH-SD 48.3 % (39-53); RED BLOOD COUNT 2.96 M/uL (4.00-5.50); WHITE BLOOD COUNT 9.8 K/uL (4.1-10.2)
[2018-01-25 11:53] VITALS: BP 128/86
[2018-01-25 15:00] VITALS: BP 116/85
[2018-01-25 16:24] LABS: IRON 18 MCG/DL (35-150); TRANSFERRIN (TIBC) 164.5 mg/dL (215-380); TRANSFERRIN SATUR. 11 % (20-55)
[2018-01-25 23:50] VITALS: BP 124/60
[2018-01-26] VITALS (12 sets, daily range): BP systolic 106–151; BP diastolic 59–90
[2018-01-26 04:22] LABS: GLUCOSE 26 mg/dL (70-99)
[2018-01-26 05:37] LABS: DEVICE HHFNC & NRM; SITE LR
[2018-01-26 05:38] LABS: COMMENTS - BLOOD GASES A+C+; FI02 100 %; O2 FLOW 70 L/MIN
[2018-01-26 05:39] LABS: BASE EXCESS -2.4 mEq/L (-3 to +3); BICARBONATE 23.7 mEq/L (22-26); CARBOXY HGB 1.5 % (0-5); METHEMOGLOBIN 0.5 % (0-1.5); PCO2 46 mm Hg (35-45); PO2 48 mm Hg (80-100); pH 7.32 (7.35-7.45)
[2018-01-26 06:31] LABS: BASOPHIL (%) 0.3 % (0-1); EOSINOPHIL (%) 1.8 % (0-5); EOSINOPHIL COUNT 0.2 K/uL (0-0.3); HEMATOCRIT 24.5 % (38.0-50.0); HEMOGLOBIN 7.8 G/DL (12.5-16.6); IMMATURE GRANULOCYTE (%) 0.5 % (0.0-0.7); LYMPHOCYTE (%) 9.5 % (15-42); LYMPHOCYTE COUNT 0.8 K/uL (1.0-2.8); MCH 27.6 PG (29.0-34.0); MCHC 31.8 G/DL (30.0-36.0); MCV 86.6 FL (86-99); MONOCYTE (%) 10.5 % (3-12); MONOCYTE COUNT 0.9 K/uL (0-0.8); NEUTROPHIL (%) 77.4 % (45-76); NEUTROPHIL COUNT 6.7 K/uL (1.8-6.4); PLATELET COUNT 211 K/uL (156-360); RBC DIS.WIDTH-CV 15.5 % (11.8-14.6); RBC DIS.WIDTH-SD 48.9 % (39-53); RED BLOOD COUNT 2.83 M/uL (4.00-5.50); WHITE BLOOD COUNT 8.7 K/uL (4.1-10.2)
[2018-01-26 06:47] LABS: INTER. NORMALIZED RATIO 1.2
[2018-01-26 06:50] LABS: PTT 53.9 SEC (25-37)
[2018-01-26 07:05] LABS: ALBUMIN 2.9 G/DL (3.2-4.8); ALKALINE PHOSPHATASE 132 IU/L (3-129); ALT (GPT) 41 IU/L (3-49); AST (GOT) 18 IU/L (2-34); CHLORIDE 106 MEQ/L (99-109); CREATININE 6.4 MG/DL (0.6-1.3); GFR ESTIMATE (CALCULATED) 9 mL/min/ (58.99-99999); MAGNESIUM 1.8 mg/dl (1.3-2.7); PHOSPHORUS 5.6 mg/dL (2.5-4.9); POTASSIUM 4.1 MEQ/L (3.7-5.4); SODIUM 139 MEQ/L (136-147); TOTAL BILIRUBIN 0.4 MG/DL (0.0-1.0); TOTAL PROTEIN 6.6 G/DL (6.4-8.3); UREA NITROGEN (BUN) 85 mg/dL (9-23)
[2018-01-26 07:06] LABS: GLUCOSE 64 mg/dL (70-99)
[2018-01-26 08:14] LABS: APPEARANCE CLOUDY ((CLEAR)); BILIRUBIN NEGATIVE; BLOOD SMALL; COLOR YELLOW ((YELLOW)); GLUCOSE (STRIP) >=500; KETONES NEGATIVE; LEUKOCYTES NEGATIVE; NITRITE NEGATIVE; PROTEIN (STRIP) >=500; UROBILINOGEN 0.2 MG/DL (0.2-1.0)
[2018-01-26 08:16] LABS: BASOPHIL (%) 0.1 % (0-1); EOSINOPHIL (%) 1.2 % (0-5); EOSINOPHIL COUNT 0.1 K/uL (0-0.3); HEMATOCRIT 24.2 % (38.0-50.0); HEMOGLOBIN 7.7 G/DL (12.5-16.6); IMMATURE GRANULOCYTE (%) 0.4 % (0.0-0.7); LYMPHOCYTE (%) 10.8 % (15-42); LYMPHOCYTE COUNT 0.7 K/uL (1.0-2.8); MCH 27.6 PG (29.0-34.0); MCHC 31.8 G/DL (30.0-36.0); MCV 86.7 FL (86-99); MONOCYTE (%) 11.4 % (3-12); MONOCYTE COUNT 0.8 K/uL (0-0.8); NEUTROPHIL (%) 76.1 % (45-76); NEUTROPHIL COUNT 5.1 K/uL (1.8-6.4); PLATELET COUNT 190 K/uL (156-360); RBC DIS.WIDTH-CV 15.4 % (11.8-14.6); RBC DIS.WIDTH-SD 48.9 % (39-53); RED BLOOD COUNT 2.79 M/uL (4.00-5.50); WHITE BLOOD COUNT 6.7 K/uL (4.1-10.2)
[2018-01-26 08:31] LABS: ALBUMIN 2.8 G/DL (3.2-4.8); CHLORIDE 106 MEQ/L (99-109); CREATININE 6.3 MG/DL (0.6-1.3); GFR ESTIMATE (CALCULATED) 10 mL/min/ (58.99-99999); PHOSPHORUS 5.2 mg/dL (2.5-4.9); POTASSIUM 4.6 MEQ/L (3.7-5.4); SODIUM 138 MEQ/L (136-147); UREA NITROGEN (BUN) 80 mg/dL (9-23)
[2018-01-26 08:33] LABS: INTER. NORMALIZED RATIO 1.2
[2018-01-26 08:36] LABS: PTT 51.3 SEC (25-37)
[2018-01-26 08:37] LABS: RED BLOOD CELLS NONE SEEN /HPF (0-5)
[2018-01-26 08:38] LABS: EPITHELIAL CELLS RARE /HPF; MUCUS NONE SEEN /LPF; WHITE BLOOD CELLS NONE SEEN /HPF (0-5)
[2018-01-26 08:39] LABS: AMORPHOUS URATES CRYSTALS 2+; BACTERIA NONE SEEN /HPF; UCUL ADDED? NO
[2018-01-26 08:48] LABS: GLUCOSE 41 mg/dL (70-99)
[2018-01-26 09:48] LABS: HEMOGLOBIN A1c (GLYCOHEMOGLOB) 13.6 % (Below 5.7)
[2018-01-26 09:56] LABS: HIGH-SENS C-REACTIVE PROTEIN > 8.00 MG/DL (0.02-0.20)
[2018-01-26 14:47] LABS: CHLORIDE 106 MEQ/L (99-109); CREATININE 6.1 MG/DL (0.6-1.3); GFR ESTIMATE (CALCULATED) 10 mL/min/ (58.99-99999); GLUCOSE 71 mg/dL (70-99); POTASSIUM 4.5 MEQ/L (3.7-5.4); SODIUM 139 MEQ/L (136-147); UREA NITROGEN (BUN) 86 mg/dL (9-23)
[2018-01-27] VITALS (18 sets, daily range): BP systolic 79–123; BP diastolic 60–75
[2018-01-27 06:25] LABS: INTER. NORMALIZED RATIO 1.1
[2018-01-27 06:28] LABS: PTT 64.9 SEC (25-37)
[2018-01-27 07:37] LABS: ALBUMIN 2.5 G/DL (3.2-4.8); CHLORIDE 103 MEQ/L (99-109); CREATININE 6.2 MG/DL (0.6-1.3); GFR ESTIMATE (CALCULATED) 10 mL/min/ (58.99-99999); GLUCOSE 131 mg/dL (70-99); PHOSPHORUS 6.7 mg/dL (2.5-4.9); POTASSIUM 4.5 MEQ/L (3.7-5.4); SODIUM 136 MEQ/L (136-147); UREA NITROGEN (BUN) 80 mg/dL (9-23)
[2018-01-27 11:17] LABS: ANTI-HEPATITIS B CORE (TOTAL) Nonreactive
[2018-01-27 11:18] LABS: HEPATITIS B SURFACE ANTIGEN Nonreactive
[2018-01-27 11:19] LABS: HEPATITIS C ANTIBODY Nonreactive
[2018-01-27 11:20] LABS: HEPATITIS B SURFACE ANTIBODY Nonreactive
[2018-01-27 20:20] LABS: COMMENTS - BLOOD GASES C+A+; DEVICE VENT; FI02 60 %; MODE SPONT; PEEP 5 CM/H20; PRES. SUPPORT 10 CM/H2O; SITE LR; TOTAL RESP RATE 18 resp/min
[2018-01-27 20:21] LABS: PCO2 32 mm Hg (35-45); PO2 95 mm Hg (80-100); pH 7.43 (7.35-7.45)
[2018-01-27 20:22] LABS: BASE EXCESS -2.6 mEq/L (-3 to +3); BICARBONATE 21.2 mEq/L (22-26); CARBOXY HGB 1.2 % (0-5); METHEMOGLOBIN 1.2 % (0-1.5); O2 SATURATION (CALCULATED) 98.7 % (95-99)
[2018-01-28] VITALS (16 sets, daily range): BP systolic 90–122; BP diastolic 49–70
[2018-01-28 06:33] LABS: BASOPHIL (%) 0.3 % (0-1); EOSINOPHIL COUNT 0.1 K/uL (0-0.3); HEMOGLOBIN 7.1 G/DL (12.5-16.6); IMMATURE GRANULOCYTE (%) 0.4 % (0.0-0.7); LYMPHOCYTE (%) 11.9 % (15-42); LYMPHOCYTE COUNT 1.2 K/uL (1.0-2.8); MCH 27.2 PG (29.0-34.0); MCHC 32.3 G/DL (30.0-36.0); MCV 84.3 FL (86-99); MONOCYTE (%) 8.9 % (3-12); MONOCYTE COUNT 0.9 K/uL (0-0.8); NEUTROPHIL (%) 77.5 % (45-76); NEUTROPHIL COUNT 7.9 K/uL (1.8-6.4); PLATELET COUNT 214 K/uL (156-360); RBC DIS.WIDTH-CV 15.6 % (11.8-14.6); RBC DIS.WIDTH-SD 47.8 % (39-53); RED BLOOD COUNT 2.61 M/uL (4.00-5.50); WHITE BLOOD COUNT 10.2 K/uL (4.1-10.2)
[2018-01-28 06:37] LABS: INTER. NORMALIZED RATIO 1.3
[2018-01-28 06:40] LABS: PTT 59.1 SEC (25-37)
[2018-01-28 09:17] LABS: ALBUMIN 2.4 G/DL (3.2-4.8); CHLORIDE 100 MEQ/L (99-109); POTASSIUM 4.9 MEQ/L (3.7-5.4); SODIUM 134 MEQ/L (136-147)
[2018-01-28 09:22] LABS: CREATININE 5.4 MG/DL (0.6-1.3); GFR ESTIMATE (CALCULATED) 11 mL/min/ (58.99-99999); PHOSPHORUS 6.5 mg/dL (2.5-4.9); UREA NITROGEN (BUN) 71 mg/dL (9-23)
[2018-01-28 09:23] LABS: GLUCOSE 284 mg/dL (70-99)
[2018-01-29] VITALS (28 sets, daily range): BP systolic 111–156; BP diastolic 59–82
[2018-01-29 04:45] LABS: INTER. NORMALIZED RATIO 1.2
[2018-01-29 04:48] LABS: PTT 53.1 SEC (25-37)
[2018-01-29 05:02] LABS: HEMATOCRIT 25.5 % (38.0-50.0); HEMOGLOBIN 8.3 G/DL (12.5-16.6); MCH 27.3 PG (29.0-34.0); MCHC 32.5 G/DL (30.0-36.0); MCV 83.9 FL (86-99); PLATELET COUNT 227 K/uL (156-360); RBC DIS.WIDTH-CV 15.4 % (11.8-14.6); RBC DIS.WIDTH-SD 46.6 % (39-53); RED BLOOD COUNT 3.04 M/uL (4.00-5.50)
[2018-01-29 06:04] LABS: ALBUMIN 2.6 G/DL (3.2-4.8); CHLORIDE 96 MEQ/L (99-109); GFR ESTIMATE (CALCULATED) 16 mL/min/ (58.99-99999); GLUCOSE 257 mg/dL (70-99); PHOSPHORUS 5.1 mg/dL (2.5-4.9); POTASSIUM 4.3 MEQ/L (3.7-5.4); SODIUM 133 MEQ/L (136-147); UREA NITROGEN (BUN) 52 mg/dL (9-23)
[2018-01-29 12:18] LABS: INTER. NORMALIZED RATIO 1.2
[2018-01-29 12:21] LABS: PTT 58.4 SEC (25-37)
[2018-01-29 18:40] LABS: INTER. NORMALIZED RATIO 1.1
[2018-01-29 18:47] LABS: PTT 32.8 SEC (25-37)
[2018-01-30] VITALS (17 sets, daily range): BP systolic 124–153; BP diastolic 70–89
[2018-01-30 02:15] LABS: BASOPHIL (%) 0.3 % (0-1); EOSINOPHIL (%) 4.6 % (0-5); EOSINOPHIL COUNT 0.5 K/uL (0-0.3); HEMATOCRIT 23.5 % (38.0-50.0); HEMOGLOBIN 7.9 G/DL (12.5-16.6); IMMATURE GRANULOCYTE (%) 0.7 % (0.0-0.7); LYMPHOCYTE (%) 17.1 % (15-42); LYMPHOCYTE COUNT 1.8 K/uL (1.0-2.8); MCH 28.1 PG (29.0-34.0); MCHC 33.6 G/DL (30.0-36.0); MCV 83.6 FL (86-99); MONOCYTE (%) 9.6 % (3-12); NEUTROPHIL (%) 67.7 % (45-76); NEUTROPHIL COUNT 7.2 K/uL (1.8-6.4); NRBC (%) 0.2 /100 WBC (0-0); PLATELET COUNT 221 K/uL (156-360); RBC DIS.WIDTH-CV 15.5 % (11.8-14.6); RBC DIS.WIDTH-SD 46.8 % (39-53); RED BLOOD COUNT 2.81 M/uL (4.00-5.50); WHITE BLOOD COUNT 10.7 K/uL (4.1-10.2)
[2018-01-30 02:21] LABS: INTER. NORMALIZED RATIO 1.2
[2018-01-30 02:39] LABS: PTT 130.2 SEC (25-37)
[2018-01-30 09:57] LABS: INTER. NORMALIZED RATIO 1.2
[2018-01-30 10:00] LABS: PTT 53.6 SEC (25-37)
[2018-01-30 11:10] LABS: ALBUMIN 2.7 G/DL (3.2-4.8); ALT (GPT) 24 IU/L (3-49); AST (GOT) 18 IU/L (2-34); CHLORIDE 99 MEQ/L (99-109); CREATININE 3.4 MG/DL (0.6-1.3); GFR ESTIMATE (CALCULATED) 19 mL/min/ (58.99-99999); GLUCOSE 150 mg/dL (70-99); POTASSIUM 4.2 MEQ/L (3.7-5.4); SODIUM 138 MEQ/L (136-147); TOTAL PROTEIN 6.6 G/DL (6.4-8.3); UREA NITROGEN (BUN) 37 mg/dL (9-23)
[2018-01-30 11:28] LABS: ALKALINE PHOSPHATASE 212 IU/L (3-129); TOTAL BILIRUBIN 0.7 MG/DL (0.0-1.0)
[2018-01-31] VITALS (8 sets, daily range): BP systolic 146–174; BP diastolic 79–98
[2018-01-31 05:34] LABS: BASOPHIL (%) 0.4 % (0-1); EOSINOPHIL (%) 6.8 % (0-5); EOSINOPHIL COUNT 0.7 K/uL (0-0.3); HEMOGLOBIN 8.5 G/DL (12.5-16.6); IMMATURE GRANULOCYTE (%) 1.6 % (0.0-0.7); LYMPHOCYTE COUNT 1.5 K/uL (1.0-2.8); MCHC 31.5 G/DL (30.0-36.0); MCV 85.7 FL (86-99); MONOCYTE (%) 9.7 % (3-12); NEUTROPHIL (%) 67.5 % (45-76); NEUTROPHIL COUNT 7.1 K/uL (1.8-6.4); PLATELET COUNT 270 K/uL (156-360); RBC DIS.WIDTH-CV 15.8 % (11.8-14.6); RBC DIS.WIDTH-SD 48.6 % (39-53); RED BLOOD COUNT 3.15 M/uL (4.00-5.50); WHITE BLOOD COUNT 10.6 K/uL (4.1-10.2)
[2018-01-31 05:54] LABS: ALBUMIN 2.8 G/DL (3.2-4.8); ALKALINE PHOSPHATASE 205 IU/L (3-129); ALT (GPT) 23 IU/L (3-49); AST (GOT) 18 IU/L (2-34); CHLORIDE 99 MEQ/L (99-109); GFR ESTIMATE (CALCULATED) 15 mL/min/ (58.99-99999); GLUCOSE 171 mg/dL (70-99); POTASSIUM 3.8 MEQ/L (3.7-5.4); SODIUM 139 MEQ/L (136-147); TOTAL BILIRUBIN 0.6 MG/DL (0.0-1.0); TOTAL PROTEIN 6.6 G/DL (6.4-8.3); UREA NITROGEN (BUN) 47 mg/dL (9-23)
[2018-01-31 05:57] LABS: ALBUMIN 2.8 G/DL (3.2-4.8); CHLORIDE 99 MEQ/L (99-109); GFR ESTIMATE (CALCULATED) 15 mL/min/ (58.99-99999); GLUCOSE 172 mg/dL (70-99); PHOSPHORUS 5.1 mg/dL (2.5-4.9); POTASSIUM 3.9 MEQ/L (3.7-5.4); SODIUM 139 MEQ/L (136-147); UREA NITROGEN (BUN) 47 mg/dL (9-23)
[2018-01-31 06:00] LABS: CREATININE 4.2 MG/DL (0.6-1.3)
[2018-01-31 06:06] LABS: CREATININE 4.2 MG/DL (0.6-1.3)
[2018-01-31 08:43] LABS: INTER. NORMALIZED RATIO 1.1
[2018-01-31 14:19] LABS: INTER. NORMALIZED RATIO 1.1
[2018-01-31 14:22] LABS: PTT 66.6 SEC (25-37)
[2018-01-31 19:52] LABS: INTER. NORMALIZED RATIO 1.1
[2018-01-31 19:54] LABS: PTT 61.4 SEC (25-37)
[2018-02-01 04:25] VITALS: BP 168/84
[2018-02-01 06:05] LABS: BASOPHIL (%) 0.5 % (0-1); EOSINOPHIL (%) 7.1 % (0-5); EOSINOPHIL COUNT 0.6 K/uL (0-0.3); HEMATOCRIT 28.2 % (38.0-50.0); HEMOGLOBIN 8.8 G/DL (12.5-16.6); IMMATURE GRANULOCYTE (%) 3.8 % (0.0-0.7); LYMPHOCYTE (%) 20.4 % (15-42); LYMPHOCYTE COUNT 1.8 K/uL (1.0-2.8); MCH 26.9 PG (29.0-34.0); MCHC 31.2 G/DL (30.0-36.0); MCV 86.2 FL (86-99); MONOCYTE (%) 8.8 % (3-12); MONOCYTE COUNT 0.8 K/uL (0-0.8); NEUTROPHIL (%) 59.4 % (45-76); NEUTROPHIL COUNT 5.2 K/uL (1.8-6.4); PLATELET COUNT 288 K/uL (156-360); RBC DIS.WIDTH-CV 15.5 % (11.8-14.6); RBC DIS.WIDTH-SD 48.4 % (39-53); RED BLOOD COUNT 3.27 M/uL (4.00-5.50); WHITE BLOOD COUNT 8.7 K/uL (4.1-10.2)
[2018-02-01 06:38] LABS: ALBUMIN 2.9 G/DL (3.2-4.8); ALKALINE PHOSPHATASE 184 IU/L (3-129); ALT (GPT) 21 IU/L (3-49); AST (GOT) 18 IU/L (2-34); CHLORIDE 99 MEQ/L (99-109); POTASSIUM 3.9 MEQ/L (3.7-5.4); SODIUM 139 MEQ/L (136-147); TOTAL PROTEIN 6.6 G/DL (6.4-8.3); UREA NITROGEN (BUN) 31 mg/dL (9-23)
[2018-02-01 06:40] LABS: CREATININE 3.4 MG/DL (0.6-1.3); GFR ESTIMATE (CALCULATED) 19 mL/min/ (58.99-99999); GLUCOSE 265 mg/dL (70-99); TOTAL BILIRUBIN 0.4 MG/DL (0.0-1.0)
[2018-02-01 08:00] VITALS: BP 151/80
[2018-02-01 12:00] VITALS: BP 185/90
[2018-02-01 16:00] VITALS: BP 157/83
[2018-02-01 20:29] VITALS: BP 131/69
[2018-02-01 23:30] VITALS: BP 160/93
[2018-02-02 04:45] VITALS: BP 161/94
[2018-02-02 07:32] LABS: BASOPHIL (%) 0.4 % (0-1); EOSINOPHIL (%) 6.3 % (0-5); EOSINOPHIL COUNT 0.6 K/uL (0-0.3); HEMOGLOBIN 8.6 G/DL (12.5-16.6); LYMPHOCYTE (%) 22.5 % (15-42); LYMPHOCYTE COUNT 2.2 K/uL (1.0-2.8); MCH 27.7 PG (29.0-34.0); MCHC 31.9 G/DL (30.0-36.0); MCV 86.8 FL (86-99); MONOCYTE (%) 12.8 % (3-12); MONOCYTE COUNT 1.2 K/uL (0-0.8); NEUTROPHIL COUNT 5.3 K/uL (1.8-6.4); PLATELET COUNT 280 K/uL (156-360); RBC DIS.WIDTH-CV 15.7 % (11.8-14.6); RBC DIS.WIDTH-SD 49.3 % (39-53); RED BLOOD COUNT 3.11 M/uL (4.00-5.50); WHITE BLOOD COUNT 9.6 K/uL (4.1-10.2)
[2018-02-02 08:05] VITALS: BP 162/79
[2018-02-02 08:35] LABS: CHLORIDE 101 MEQ/L (99-109); GFR ESTIMATE (CALCULATED) 14 mL/min/ (58.99-99999); GLUCOSE 150 mg/dL (70-99); PHOSPHORUS 5.1 mg/dL (2.5-4.9); POTASSIUM 3.9 MEQ/L (3.7-5.4); SODIUM 141 MEQ/L (136-147); UREA NITROGEN (BUN) 41 mg/dL (9-23)
[2018-02-02 08:36] LABS: CREATININE 4.5 MG/DL (0.6-1.3)
[2018-02-02 11:39] LABS: ALBUMIN 2.7 G/DL (3.2-4.8); ALKALINE PHOSPHATASE 180 IU/L (3-129); ALT (GPT) 22 IU/L (3-49); AST (GOT) 22 IU/L (2-34); TOTAL BILIRUBIN 0.4 MG/DL (0.0-1.0); TOTAL PROTEIN 6.5 G/DL (6.4-8.3)
[2018-02-02 16:19] VITALS: BP 150/78
[2018-02-02 19:00] VITALS: BP 133/78
[2018-02-02 23:30] VITALS: BP 177/87
[2018-02-03 05:00] VITALS: BP 131/71
[2018-02-03 07:23] VITALS: BP 170/81
[2018-02-03 08:23] LABS: HEMATOCRIT 25.9 % (38.0-50.0); HEMOGLOBIN 8.2 G/DL (12.5-16.6); MCH 27.7 PG (29.0-34.0); MCHC 31.7 G/DL (30.0-36.0); MCV 87.5 FL (86-99); PLATELET COUNT 315 K/uL (156-360); RBC DIS.WIDTH-CV 15.9 % (11.8-14.6); RBC DIS.WIDTH-SD 49.2 % (39-53); RED BLOOD COUNT 2.96 M/uL (4.00-5.50); WHITE BLOOD COUNT 9.5 K/uL (4.1-10.2)
[2018-02-03 08:47] LABS: INTACT PARATHYROID HORMONE 185 pg/mL (10-69)
[2018-02-03 09:10] LABS: ALKALINE PHOSPHATASE 150 IU/L (3-129); ALT (GPT) 19 IU/L (3-49); AST (GOT) 14 IU/L (2-34); CHLORIDE 101 MEQ/L (99-109); POTASSIUM 3.3 MEQ/L (3.7-5.4); SODIUM 139 MEQ/L (136-147); TOTAL PROTEIN 6.9 G/DL (6.4-8.3); UREA NITROGEN (BUN) 54 mg/dL (9-23)
[2018-02-03 09:11] LABS: CREATININE 5.6 MG/DL (0.6-1.3); GFR ESTIMATE (CALCULATED) 11 mL/min/ (58.99-99999); GLUCOSE 83 mg/dL (70-99); TOTAL BILIRUBIN 0.3 MG/DL (0.0-1.0)
[2018-02-03 09:46] LABS: CHLORIDE 101 MEQ/L (99-109); CREATININE 5.6 MG/DL (0.6-1.3); GFR ESTIMATE (CALCULATED) 11 mL/min/ (58.99-99999); GLUCOSE 83 mg/dL (70-99); PHOSPHORUS 4.8 mg/dL (2.5-4.9); POTASSIUM 3.3 MEQ/L (3.7-5.4); SODIUM 139 MEQ/L (136-147); UREA NITROGEN (BUN) 54 mg/dL (9-23)
[2018-02-03 12:30] VITALS: BP 164/49
[2018-02-03 15:52] VITALS: BP 130/74
[2018-02-03 19:24] VITALS: BP 160/87
[2018-02-03 23:40] VITALS: BP 148/84
[2018-02-04 04:00] VITALS: BP 152/78
[2018-02-04 05:53] LABS: HEMATOCRIT 29.2 % (38.0-50.0); HEMOGLOBIN 9.1 G/DL (12.5-16.6); MCH 27.3 PG (29.0-34.0); MCHC 31.2 G/DL (30.0-36.0); MCV 87.7 FL (86-99); NRBC (%) 0.2 /100 WBC (0-0); PLATELET COUNT 330 K/uL (156-360); RBC DIS.WIDTH-SD 48.6 % (39-53); RED BLOOD COUNT 3.33 M/uL (4.00-5.50); WHITE BLOOD COUNT 9.1 K/uL (4.1-10.2)
[2018-02-04 06:48] LABS: ABS NEUTROPHIL COUNT 6.2; ANISOCYTOSIS 2+; BAND NEUTROPHILS 2.7 % (0-8.0); EOSINOPHIL ABS CT 0.5; EOSINOPHILS 5.4 % (0-5.0); HEMATOLOGY COMMENT 1 SN; HYPOCHROMASIA 1+; LYMPHOCYTES 13.5 % (15.0-45.0); MACROCYTES 1+; METAMYELOCYTES 2.7 %; MONOCYTES 9.9 % (0-9.0); OVALOCYTES 1+; PLAT.SUFFICIENCY ADEQUATE; POIKILOCYTOSIS 1+; POLYCHROMASIA 1+; SEG.NEUTROPHILS 65.8 % (46.0-76.0); TOXIC GRANULATION 1+
[2018-02-04 07:08] LABS: ALBUMIN 2.9 G/DL (3.2-4.8); ALT (GPT) 20 IU/L (3-49); CHLORIDE 98 MEQ/L (99-109); SODIUM 135 MEQ/L (136-147); TOTAL BILIRUBIN 0.3 MG/DL (0.0-1.0); TOTAL PROTEIN 6.7 G/DL (6.4-8.3); UREA NITROGEN (BUN) 33 mg/dL (9-23)
[2018-02-04 07:09] LABS: ALKALINE PHOSPHATASE 191 IU/L (3-129); AST (GOT) 23 IU/L (2-34); CREATININE 3.9 MG/DL (0.6-1.3); GFR ESTIMATE (CALCULATED) 17 mL/min/ (58.99-99999); GLUCOSE 364 mg/dL (70-99); POTASSIUM 4.5 MEQ/L (3.7-5.4)
[2018-02-04 09:32] VITALS: BP 156/86
[2018-02-04 12:29] VITALS: BP 180/90
[2018-02-04 17:56] VITALS: BP 168/74
[2018-02-04 20:01] VITALS: BP 140/87
[2018-02-05] VITALS (8 sets, daily range): BP systolic 92–186; BP diastolic 63–91
[2018-02-05 08:55] LABS: BASOPHIL (%) 0.7 % (0-1); BASOPHIL COUNT 0.1 K/uL (0-0.1); EOSINOPHIL (%) 5.5 % (0-5); EOSINOPHIL COUNT 0.5 K/uL (0-0.3); HEMATOCRIT 27.1 % (38.0-50.0); HEMOGLOBIN 8.6 G/DL (12.5-16.6); IMMATURE GRANULOCYTE (%) 3.8 % (0.0-0.7); LYMPHOCYTE (%) 23.5 % (15-42); LYMPHOCYTE COUNT 1.9 K/uL (1.0-2.8); MCH 28.4 PG (29.0-34.0); MCHC 31.7 G/DL (30.0-36.0); MCV 89.4 FL (86-99); MONOCYTE (%) 17.4 % (3-12); MONOCYTE COUNT 1.4 K/uL (0-0.8); NEUTROPHIL (%) 49.1 % (45-76); NEUTROPHIL COUNT 4.1 K/uL (1.8-6.4); NRBC (%) 0.2 /100 WBC (0-0); PLATELET COUNT 345 K/uL (156-360); RBC DIS.WIDTH-CV 16.8 % (11.8-14.6); RBC DIS.WIDTH-SD 51.8 % (39-53); RED BLOOD COUNT 3.03 M/uL (4.00-5.50); WHITE BLOOD COUNT 8.2 K/uL (4.1-10.2)
[2018-02-05 09:14] LABS: ALBUMIN 2.9 G/DL (3.2-4.8); CHLORIDE 98 MEQ/L (99-109); POTASSIUM 3.9 MEQ/L (3.7-5.4); SODIUM 134 MEQ/L (136-147)
[2018-02-05 09:22] LABS: CREATININE 4.8 MG/DL (0.6-1.3); GFR ESTIMATE (CALCULATED) 13 mL/min/ (58.99-99999); GLUCOSE 258 mg/dL (70-99); PHOSPHORUS 4.1 mg/dL (2.5-4.9); UREA NITROGEN (BUN) 40 mg/dL (9-23)
[2018-02-05 11:56] LABS: TOTAL BILIRUBIN 0.3 MG/DL (0.0-1.0)
[2018-02-05 12:00] LABS: ALKALINE PHOSPHATASE 154 IU/L (3-129); ALT (GPT) 17 IU/L (3-49); AST (GOT) 14 IU/L (2-34); TOTAL PROTEIN 7.2 G/DL (6.4-8.3)
[2018-02-06 04:30] VITALS: BP 149/80
[2018-02-06 07:39] VITALS: BP 135/78
[2018-02-06 09:02] LABS: HEMOGLOBIN 8.8 G/DL (12.5-16.6); MCH 28.2 PG (29.0-34.0); MCHC 31.4 G/DL (30.0-36.0); MCV 89.7 FL (86-99); NRBC (%) 0.6 /100 WBC (0-0); PLATELET COUNT 348 K/uL (156-360); RBC DIS.WIDTH-SD 51.2 % (39-53); RED BLOOD COUNT 3.12 M/uL (4.00-5.50)
[2018-02-06 10:04] LABS: ABS NEUTROPHIL COUNT 3.6; ANISOCYTOSIS 1+; BASOPHILS 0.9 %; EOSINOPHIL ABS CT 0.3; EOSINOPHILS 4.6 % (0-5.0); LYMPHOCYTES 24.1 % (15.0-45.0); MACROCYTES 1+; MONOCYTES 18.5 % (0-9.0); PLAT.SUFFICIENCY ADEQUATE; SEG.NEUTROPHILS 51.9 % (46.0-76.0); SMUDGE CELLS 4.6
[2018-02-06 12:51] VITALS: BP 166/91
[2018-02-06 21:30] VITALS: BP 131/70
[2018-02-06 23:50] VITALS: BP 164/85
[2018-02-07 04:15] VITALS: BP 110/67
[2018-02-07 07:19] VITALS: BP 114/66
[2018-02-07 08:05] LABS: HEMATOCRIT 29.1 % (38.0-50.0); HEMOGLOBIN 9.1 G/DL (12.5-16.6); MCH 28.5 PG (29.0-34.0); MCHC 31.3 G/DL (30.0-36.0); MCV 91.2 FL (86-99); NRBC (%) 0.3 /100 WBC (0-0); PLATELET COUNT 384 K/uL (156-360); RBC DIS.WIDTH-CV 17.2 % (11.8-14.6); RBC DIS.WIDTH-SD 53.5 % (39-53); RED BLOOD COUNT 3.19 M/uL (4.00-5.50); WHITE BLOOD COUNT 7.4 K/uL (4.1-10.2)
[2018-02-07 08:18] LABS: CHLORIDE 100 MEQ/L (99-109); SODIUM 138 MEQ/L (136-147)
[2018-02-07 08:23] LABS: CREATININE 5.2 MG/DL (0.6-1.3); GFR ESTIMATE (CALCULATED) 12 mL/min/ (58.99-99999); GLUCOSE 159 mg/dL (70-99); PHOSPHORUS 4.6 mg/dL (2.5-4.9); UREA NITROGEN (BUN) 32 mg/dL (9-23)
[2018-02-07 11:38] VITALS: BP 125/80
[2018-02-07] MEDS ORDERED: CEFEPIME HCL1 GM IV (13:10)
[2018-02-07] MEDS ORDERED: DUONEB 2.5-0.5 M3 ML AEROSOL (13:11)
[2018-02-07] MEDS ORDERED: XARELTO15 MG PO (13:13)
[2018-02-07] MEDS ORDERED: ARANESP100 MCG/0. IV (13:14)
[2018-02-07] MEDS ORDERED: SERTRALINE HCL50 MG PO (13:16)
[2018-02-07] MEDS ORDERED: FUROSEMIDE80 MG PO (13:17)
[2018-02-07] MEDS ORDERED: NEPHRO-VITE,1 TABLET PO (13:18)
[2018-02-07] MEDS ORDERED: TRAMADOL HCL50 MG PO (13:18)
[2018-02-07 16:09] VITALS: BP 117/73
[2018-02-07 20:00] VITALS: BP 159/87
[2018-02-07 23:11] VITALS: BP 146/80
[2018-02-08 03:51] VITALS: BP 161/74
[2018-02-08 07:45] VITALS: BP 157/91
[2018-02-08 12:19] VITALS: BP 148/95
[2018-02-08 14:57] VITALS: BP 149/90
[2018-02-08 20:15] VITALS: BP 117/71
[2018-02-09 00:23] VITALS: BP 142/85
[2018-02-09 04:31] VITALS: BP 154/90
[2018-02-09 06:24] LABS: BASOPHIL (%) 0.7 % (0-1); EOSINOPHIL (%) 4.7 % (0-5); EOSINOPHIL COUNT 0.3 K/uL (0-0.3); HEMATOCRIT 31.8 % (38.0-50.0); HEMOGLOBIN 9.9 G/DL (12.5-16.6); IMMATURE GRANULOCYTE (%) 0.4 % (0.0-0.7); LYMPHOCYTE COUNT 1.3 K/uL (1.0-2.8); MCH 28.1 PG (29.0-34.0); MCHC 31.1 G/DL (30.0-36.0); MCV 90.3 FL (86-99); MONOCYTE (%) 16.5 % (3-12); MONOCYTE COUNT 0.9 K/uL (0-0.8); NEUTROPHIL (%) 54.7 % (45-76); PLATELET COUNT 357 K/uL (156-360); RBC DIS.WIDTH-SD 55.1 % (39-53); RED BLOOD COUNT 3.52 M/uL (4.00-5.50); WHITE BLOOD COUNT 5.5 K/uL (4.1-10.2)
[2018-02-09 08:20] VITALS: BP 168/94
[2018-02-09 12:30] VITALS: BP 179/97
[2018-02-09 16:46] VITALS: BP 130/70
[2018-02-09 19:50] VITALS: BP 162/85
[2018-02-10 03:37] VITALS: BP 171/99
[2018-02-10 05:29] VITALS: BP 155/88
[2018-02-10 10:19] LABS: HEMATOCRIT 32.1 % (38.0-50.0); MCH 28.2 PG (29.0-34.0); MCHC 31.2 G/DL (30.0-36.0); MCV 90.4 FL (86-99); PLATELET COUNT 370 K/uL (156-360); RBC DIS.WIDTH-CV 18.3 % (11.8-14.6); RBC DIS.WIDTH-SD 59.3 % (39-53); RED BLOOD COUNT 3.55 M/uL (4.00-5.50); WHITE BLOOD COUNT 5.7 K/uL (4.1-10.2)
[2018-02-10 10:31] LABS: ALBUMIN 3.1 G/DL (3.2-4.8); CHLORIDE 97 MEQ/L (99-109); POTASSIUM 4.4 MEQ/L (3.7-5.4); SODIUM 134 MEQ/L (136-147)
[2018-02-10 10:37] LABS: GFR ESTIMATE (CALCULATED) 8 mL/min/ (58.99-99999); GLUCOSE 199 mg/dL (70-99); PHOSPHORUS 5.8 mg/dL (2.5-4.9); UREA NITROGEN (BUN) 36 mg/dL (9-23)
[2018-02-10 10:38] LABS: CREATININE 7.3 MG/DL (0.6-1.3)
== END 2018-02-10 15:17 | DRG 208 ==
LOC: EME 17:10 → 4WEST 19:00 → EDOF 19:00 → ENRESERV 19:14 → 4EAST 22:57 → ENRESERVTM 01-26 05:34 → ENRESERVDT 01-26 05:34 → ENRESERV 01-26 05:34 → 4WEST 01-26 05:40 → ENRESERV 01-31 00:47 → 4EAST 01-31 03:49 → ENRESERV 02-07 21:15 → 5SOUTH 02-07 22:53
PROVIDERS: Emergency Medicine; Family Medicine; Internal Medicine; Internal Medicine Nephrology; Obstetrics & Gynecology; Surgery
PROC: 5A09357 Assistance with Respiratory Ventilation, Less than 24 Consecutive Hours, Continuous Positive Airway Pressure (ICD-10-PCS; principal; 2018-01-24)
PROC: 5A1945Z Respiratory Ventilation, 24-96 Consecutive Hours (ICD-10-PCS; 2018-01-26)
PROC: 0BH17EZ Insertion of Endotracheal Airway into Trachea, Via Natural or Artificial Opening (ICD-10-PCS; 2018-01-26)
PROC: B543ZZA Ultrasonography of Right Jugular Veins, Guidance (ICD-10-PCS; 2018-01-27)
PROC: 02HV33Z Insertion of Infusion Device into Superior Vena Cava, Percutaneous Approach (ICD-10-PCS; 2018-01-27)
PROC: 5A1D70Z Performance of Urinary Filtration, Intermittent, Less than 6 Hours Per Day (ICD-10-PCS; 2018-01-27)
PROC: 30233N1 Transfusion of Nonautologous Red Blood Cells into Peripheral Vein, Percutaneous Approach (ICD-10-PCS; 2018-01-28)
PROC: 02HV33Z Insertion of Infusion Device into Superior Vena Cava, Percutaneous Approach (ICD-10-PCS; 2018-02-06)
PROC: B543ZZA Ultrasonography of Right Jugular Veins, Guidance (ICD-10-PCS; 2018-02-06)
DX: J96.01 Acute respiratory failure with hypoxia (principal); I13.2 Hypertensive heart and chronic kidney disease with heart failure and with stage 5 chronic kidney disease, or end stage renal disease; I50.9 Heart failure, unspecified; J44.0 Chronic obstructive pulmonary disease with (acute) lower respiratory infection; J18.9 Pneumonia, unspecified organism; E11.649 Type 2 diabetes mellitus with hypoglycemia without coma; E87.2 Acidosis; E11.65 Type 2 diabetes mellitus with hyperglycemia; G93.41 Metabolic encephalopathy; Z53.29 Procedure and treatment not carried out because of patient's decision for other reasons; E11.21 Type 2 diabetes mellitus with diabetic nephropathy; E11.22 Type 2 diabetes mellitus with diabetic chronic kidney disease; N18.6 End stage renal disease; J44.1 Chronic obstructive pulmonary disease with (acute) exacerbation; N25.81 Secondary hyperparathyroidism of renal origin; D63.1 Anemia in chronic kidney disease; L89.109 Pressure ulcer of unspecified part of back, unspecified stage; K21.9 Gastro-esophageal reflux disease without esophagitis; E78.5 Hyperlipidemia, unspecified; F41.9 Anxiety disorder, unspecified; F32.9 Major depressive disorder, single episode, unspecified; I48.2 Chronic atrial fibrillation; E55.9 Vitamin D deficiency, unspecified; E11.42 Type 2 diabetes mellitus with diabetic polyneuropathy; E03.9 Hypothyroidism, unspecified; F17.210 Nicotine dependence, cigarettes, uncomplicated; E66.9 Obesity, unspecified; Z91.19 Patient's noncompliance with other medical treatment and regimen; Z79.4 Long term (current) use of insulin; Z79.82 Long term (current) use of aspirin; Z79.01 Long term (current) use of anticoagulants; Z91.14 Patient's other noncompliance with medication regimen; Z68.32 Body mass index [BMI] 32.0-32.9, adult; Z91.11 Patient's noncompliance with dietary regimen
CPT/HCPCS: 31500; 36430; 36600; 71045; 71046; 71250; 80048; 80048 91; 80053; 80069; 80202; 81003; 82803; 82947; 82948; 83036; 83540; 83605; 83735; 83880; 83970; 84100; 84145 90; 84466; 84484; 84999; 85025; 85025 91; 85027; 85610; 85730; 86141; 86704; 86706; 86803; 86850; 86900; 86901; 86920; 86999; 87040; 87070; 87081; 87205; 87340; 87641; 93005; 94002; 94003; 94010; 94640; 94640 76; 94760; 94799; 96374; 99202; 99281; 99285; A6214; C1788; J0456; J0692; J0881; J1170; J1200; J1644; J1756; J1815; J1940; J2250; J2704; J3010; J3370; P9016; S0028

== ENCOUNTER 2018-02-16 23:55 | Emergency (ER) | payer OTHER ==
[~2018-02-16] VITALS: Ht 185.4 cm; Wt 75.3 kg
[~2018-02-16 23:55] MED LIST changes: +ARANESP100 MCG/0. IV; +BASAGLAR K100 UNIT/1 SC; +CEFEPIME HCL1 GM IV; +DUONEB 2.5-0.5 M3 ML AEROSOL; +FLEET ENEMA-AD118 ML PR; +FLONASE16 G1 BOTH NARES; +FUROSEMIDE80 MG PO; +HUMALOG100 UNIT/1 SC; +NEPHRO-VITE,1 TABLET PO; +PHILLIPS'400 MG/5 M PO; +SERTRALINE HCL50 MG PO; +TRAMADOL HCL50 MG PO; +TYLENOL REGULA325 MG PO; +XARELTO15 MG PO
[2018-02-17 00:36] LABS: BASOPHIL (%) 0.1 % (0-1); EOSINOPHIL (%) 0.1 % (0-5); HEMOGLOBIN 10.4 G/DL (12.5-16.6); IMMATURE GRANULOCYTE (%) 0.3 % (0.0-0.7); LYMPHOCYTE (%) 12.8 % (15-42); LYMPHOCYTE COUNT 1.4 K/uL (1.0-2.8); MCH 28.3 PG (29.0-34.0); MCHC 32.5 G/DL (30.0-36.0); MCV 87.2 FL (86-99); MONOCYTE (%) 8.3 % (3-12); MONOCYTE COUNT 0.9 K/uL (0-0.8); NEUTROPHIL (%) 78.4 % (45-76); NEUTROPHIL COUNT 8.5 K/uL (1.8-6.4); PLATELET COUNT 277 K/uL (156-360); RBC DIS.WIDTH-CV 16.3 % (11.8-14.6); RBC DIS.WIDTH-SD 52.3 % (39-53); RED BLOOD COUNT 3.67 M/uL (4.00-5.50); WHITE BLOOD COUNT 10.8 K/uL (4.1-10.2)
[2018-02-17 00:49] LABS: CHLORIDE 93 mEq/L (99-109); POTASSIUM 3.7 mEq/L (3.7-5.4); SODIUM 135 mEq/L (136-147)
[2018-02-17 00:51] LABS: GLUCOSE 302 mg/dL (70-99)
[2018-02-17 00:55] LABS: GFR ESTIMATE (CALCULATED) 7 mL/min/ (58.99-99999)
[2018-02-17 00:56] LABS: UREA NITROGEN (BUN) 48 mg/dL (9-23)
[2018-02-17 01:01] LABS: CREATININE 8.7 mg/dL (0.6-1.3)
[2018-02-17 06:00] VITALS: BP 98/67
== END 2018-02-17 06:06 ==
LOC: EME → EDBD 23:55 → EME 23:55
PROVIDERS: Emergency Medicine
DX: E11.65 Type 2 diabetes mellitus with hyperglycemia (principal); E11.22 Type 2 diabetes mellitus with diabetic chronic kidney disease; Z79.4 Long term (current) use of insulin; N18.6 End stage renal disease; Z99.2 Dependence on renal dialysis; E78.5 Hyperlipidemia, unspecified; F41.9 Anxiety disorder, unspecified; F32.9 Major depressive disorder, single episode, unspecified; Z79.82 Long term (current) use of aspirin; Z87.891 Personal history of nicotine dependence; Z85.9 Personal history of malignant neoplasm, unspecified
CPT/HCPCS: 36600; 80048; 81003; 82948; 85025; 93005; 99281; 99285